=== PATIENT | female | born 1950 | race Caucasian/White ===

== ENCOUNTER 2017-05-03 09:45 | Outpatient (CLI) | payer MEDICARE, MEDICAID ==
[2017-05-03 18:35] LABS: ALBUMIN/GLOBULIN RATIO 1.3 (1.0-2.2); BILIRUBIN,TOTAL 0.8 mg/dL (0.2-1.0); BUN - BLOOD UREA NITROGEN 7 mg/dL (6-20); CALCIUM 9.4 mg/dL (8.5-10.3); CARBON DIOXIDE - CO2 25 mmol/L (21-32); CHLORIDE 103 mmol/L (101-111); CHOL/HDL RATIO 3.3 (<4.4); CHOLESTEROL 212 mg/dL; CREATININE 0.8 mg/dL (0.4-1.0); GFR - MDRD 72 (>89); GLUCOSE 86 mg/dL (70-100); HDL CHOLESTEROL 65 mg/dL; LDL/HDL RATIO 2.1 (<4.4); POTASSIUM 4.2 mmol/L (3.5-5.0); SODIUM 136 mmol/L (135-145); TOTAL PROTEIN 6.9 g/dL (6.7-8.2); TRIGLYCERIDES 49 mg/dL; VLDL CHOLESTEROL 10 mg/dL
== END 2017-05-03 09:46 | disposition home or self-care (01) ==
LOC: LAB.S 09:45
PROVIDERS: ATTEND Nurse Practitioner Family
DX: Z51.81 Encounter for therapeutic drug level monitoring (principal)
CPT/HCPCS: 36415; 80053; 80061; 80178; 84443

== ENCOUNTER 2017-05-06 12:37 | Outpatient (CLI) | payer MEDICARE, MEDICAID ==
--- NOTE | 2017-05-06 15:53 | CT Report ---
LOW DOSE CHEST CT WITHOUT CONTRAST FOR LUNG CANCER SCREENIN05/06/2017 CLINICAL INDICATION: A 66-year-old with 52.5-pack-year history of smoking, current smoker, asymptomat ic. COMPARISON: 04/08/2007. TECHNIQUE: Axial CT images of the chest were obtained without intravenous contrast, using low dose sc reening technique. FINDINGS: The heart and great vessels demonstrate mild atherosclerotic calcifications. No hilar or m ediastinal lymphadenopathy is present. There is a 4 mm subpleural nodule in the posterior left lower lobe, stable from 2006. No new pulmonary nodule or mass lesion is seen. No effusion or pneumothorax i s present. The osseous structures demonstrate degenerative changes. Limited evaluation of upper abdom inal structures demonstrates normal adrenal glands. IMPRESSION: STABLE 4 MM SUBPLEURAL NODULE IN THE LEFT LOWER LOBE. RECOMMENDATION: CONTINUE ANNUAL SCREENING WITH LOW DOSE CT IN TWELVE MONTHS. LUNG RADS CATEGORY 2-BENIGN APPEARANCE. In accordance with CT protocol optimization, one or more of the following dose reduction techniques w ere utilized for this exam: automated exposure control, adjustment of mA and/or KV based on patient size, or use of iterative reconstructive technique. JOB #: [id number] EXT JOB #:[id number]
== END 2017-05-06 12:38 | disposition home or self-care (01) ==
LOC: DI 12:37
PROVIDERS: ATTEND Nurse Practitioner Family
DX: Z12.2 Encounter for screening for malignant neoplasm of respiratory organs (principal); R91.1 Solitary pulmonary nodule; F17.210 Nicotine dependence, cigarettes, uncomplicated

== ENCOUNTER 2017-07-08 08:42 | Emergency (ER) | payer MEDICARE, MEDICAID ==
[2017-07-08 09:29] LABS: BILIRUBIN,URINE NEGATIVE (NEGATIVE); PH,URINE 6.5 PH (5.0-7.5)
[2017-07-08 09:30] LABS: UA CHARGE (STRIP ONLY) YES; UR CULTURE IF IND NOT INDICATED
[2017-07-08 09:31] LABS: BASOPHILS # (AUTO) 0.1 10^3/uL (0.0-0.1); BASOPHILS % (AUTO) 0.6 %; EOSINOPHILS # (AUTO) 0.1 10^3/uL (0.0-0.7); EOSINOPHILS % (AUTO) 0.7 %; HGB - HEMOGLOBIN 15.3 g/dL (12.0-16.0); LYMPHOCYTES # (AUTO) 1.7 10^3/uL (1.5-3.5); LYMPHOCYTES % (AUTO) 20.7 %; MEAN CORPUSCULAR HGB CONC 33.9 g/dL (32.0-36.0); MEAN CORPUSCULAR VOLUME 97.3 fL (81.0-99.0); MEAN PLATELET VOLUME 8.7 fL (7.9-10.8); MONOCYTES # (AUTO) 0.6 10^3/uL (0.0-1.0); MONOCYTES % (AUTO) 7.1 %; NEUTROPHILS # (AUTO) 5.8 10^3/uL (1.5-6.6); NEUTROPHILS % (AUTO) 70.9 %; RED BLOOD COUNT 4.63 10^6/uL (4.20-5.40); RED CELL DISTRIBUTION WIDTH 13.9 % (12.0-15.0); UNCORRECTED WHITE BLOOD COUNT 8.1 x10^3/uL; WHITE BLOOD COUNT 8.1 x10^3/uL (4.8-10.8)
[2017-07-08 09:44] LABS: ALBUMIN/GLOBULIN RATIO 1.3 (1.0-2.2); BILIRUBIN,TOTAL 0.9 mg/dL (0.2-1.0); BUN - BLOOD UREA NITROGEN 7 mg/dL (6-20); CALCIUM 9.4 mg/dL (8.5-10.3); CARBON DIOXIDE - CO2 22 mmol/L (21-32); CHLORIDE 102 mmol/L (101-111); CREATININE 0.6 mg/dL (0.4-1.0); GFR - MDRD 100 (>89); GLUCOSE 105 mg/dL (70-100); LIPASE 33 U/L (22-51); POTASSIUM 3.7 mmol/L (3.5-5.0); SALICYLATE < 6.0 mg/dL; SODIUM 136 mmol/L (135-145); TOTAL PROTEIN 6.9 g/dL (6.7-8.2)
[2017-07-08 09:46] LABS: ACETAMINOPHEN < 10 ug/mL (10-30)
--- NOTE | 2017-07-08 13:00 | ED Physician Documentation ---
History of Present Illness - Stated complaint Stated Complaint: CONFUSION - Chief complaint Chief Complaint: General - Additonal information Additional information: This patient is a pleasant 66-year-old female with a history of bipolar disorder on lithium. She was a patient of [facility] here and is been getting a prescription by her physician she is a patient of [facility] but apparently is unable to get counseling through them because of her Medicare status. This patient lives alone in a private home. She does have a homeless son who [place] who she worries about. She is unsure whether to let him stay at her house or not. She is also very worried about several political issues. She had a message that came across her phone very quickly and she is unsure if was addressed to her or not. Will at the [employer] somebody was talking in she was concerned that maybe they were talking to her in reference to these messages. She has not been sleeping well but this is an ongoing issue. She takes melatonin but sometimes it has no effect. She has been eating drinking without problem and does not have any somatic complaints. She is here because she has been feeling very stressed and she just wanted to . She does not have a plan to do so but did think about it which scared her. She does have a history of wrist cutting several years ago but has not done anything recently. Review of systems: For pertinent positive and negatives in the review of systems please see the history of present illness, otherwise all other systems have been reviewed and are negative. Dragon disclaimer: Parts of this medical record were created using voice recognition technology. Because of the inherent limitations of this system, occasional same sounding word substitutions do occur and persist despite proofreading. Please read the document for context. Review of Systems Constitutional: denies: Fever, Chills Eyes: denies: Loss of vision Psychiatric: reports: Suicidal, Delusions, Anxiety, Insomnia PD PAST MEDICAL HISTORY - Past Medical History Cardiovascular: High cholesterol Respiratory: None Endocrine/Autoimmune: None GI: None : None HEENT: None Psych: Depression, Anxiety, Bipolar disorder, Post traumatic stress disorder Musculoskeletal: Osteoporosis, Chronic back pain Derm: None - Past Surgical History Past Surgical History: Yes HEENT: Tonsil/Adenoidectomy - Present Medications Home Medications: Ambulatory Orders Medication Instructions Recorded Confirmed [facility] [place] [facility] [Lithobid] 300 mg PO DAILY 07/08/17 07/08/17 - Allergies Allergies/Adverse Reactions: Allergies Allergy/AdvReac Type Severity Reaction Status Date / Time adhesive Allergy Intermediate Rash Verified 12/13/14 22:00 naproxen Allergy Unknown Verified 07/27/14 11:14 - Social History Does the pt smoke?: Yes Smoking Status: Current every day smoker Does the pt drink ETOH?: No Does the pt have substance abuse?: Yes - Immunizations Immunizations are current?: No Immunizations: TDAP >10years/unknown - POLST Patient has POLST: No PD ED PE NORMAL - General General: Alert and oriented X 3, No acute distress, Well developed/nourished - HEENT HEENT: Atraumatic, PERRL - Neck Neck: Supple, no meningeal sign, No bony TTP - Cardiac Cardiac: RRR, No murmur, No gallop, No rub - Respiratory Respiratory: No respiratory distress, Clear bilaterally - Abdomen Abdomen: Normal bowel sounds, Soft, Non tender, Non distended - Derm Derm: Normal color, Warm and dry - Extremities Extremities: No deformity, No tenderness to palpate, Normal ROM s pain, No edema - Neuro Neuro: Alert and oriented X 3, 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, No motor deficit, No sensory deficit - Psych Psych: Normal mood, Normal affect Results - Vitals Vitals: Vital Signs - 24 hr 07/08/17 08:44 Temperature 36.2 C L Heart Rate 92 Respiratory 20 Rate Blood Pressure 154/97 H O2 Saturation 98 Oxygen O2 Source Room air - Labs Labs: Laboratory Tests 07/08/17 07/08/17 07/08/17 09:10 09:23 09:23 WBC 8.1 RBC 4.63 Hgb 15.3 Hct 45.0 MCV 97.3 MCH 33.0 H MCHC 33.9 RDW 13.9 Plt Count 307 MPV 8.7 Neut # 5.8 Lymph # 1.7 [place] # 0.6 Eos # 0.1 Baso # 0.1 Absolute Nucleated RBC 0.00 Nucleated RBCs 0.0 Sodium 136 Potassium 3.7 Chloride 102 Carbon Dioxide 22 Anion Gap 12.0 BUN 7 Creatinine 0.6 Estimated GFR (MDRD) 100 Glucose 105 H Calcium 9.4 Total Bilirubin 0.9 AST 22 ALT 21 Alkaline Phosphatase 87 Total Protein 6.9 Albumin 3.9 Globulin 3.0 Albumin/Globulin Ratio 1.3 Lipase 33 Urine Color LT. YELLOW Urine Clarity CLEAR Urine pH 6.5 Ur Specific [place] <=1.005 Urine Protein NEGATIVE Urine Glucose (UA) NEGATIVE Urine Ketones TRACE Urine Occult Blood NEGATIVE Urine Nitrite NEGATIVE Urine Bilirubin NEGATIVE Urine Urobilinogen 0.2 (NORMAL) Ur Leukocyte Esterase NEGATIVE Ur Microscopic Review NOT INDICATED Urine Culture Comments NOT INDICATED Last Dose Date Last Dose Time Salicylates < 6.0 Urine Opiates Screen NEGATIVE Ur Oxycodone Screen NEGATIVE Urine Methadone Screen NEGATIVE Ur Propoxyphene Screen NEGATIVE Acetaminophen < 10 L Ur Barbiturates Screen NEGATIVE Ur Tricyclics Screen NEGATIVE Ur Phencyclidine Scrn NEGATIVE Ur Amphetamine Screen NEGATIVE U Methamphetamines Scrn NEGATIVE U Benzodiazepines Scrn NEGATIVE [place] Urine Cocaine Screen NEGATIVE U Cannabinoids Screen NEGATIVE Ethyl Alcohol < 5.0 07/08/17 09:23 WBC RBC Hgb Hct MCV MCH MCHC RDW Plt Count MPV Neut # Lymph # [place] # Eos # Baso # Absolute Nucleated RBC Nucleated RBCs Sodium Potassium Chloride Carbon Dioxide Anion Gap BUN Creatinine Estimated GFR (MDRD) Glucose Calcium Total Bilirubin AST ALT Alkaline Phosphatase Total Protein Albumin Globulin Albumin/Globulin Ratio Lipase Urine Color Urine Clarity Urine pH Ur Specific [place] Urine Protein Urine Glucose (UA) Urine Ketones Urine Occult Blood Urine Nitrite Urine Bilirubin Urine Urobilinogen Ur Leukocyte Esterase Ur Microscopic Review Urine Culture Comments Last Dose Date Unknown Last Dose Time Unknown Salicylates Urine Opiates Screen Ur Oxycodone Screen Urine Methadone Screen Ur Propoxyphene Screen Acetaminophen Ur Barbiturates Screen Ur Tricyclics Screen Ur Phencyclidine Scrn Ur Amphetamine Screen U Methamphetamines Scrn U Benzodiazepines Scrn [place] 0.24 Urine Cocaine Screen U Cannabinoids Screen Ethyl Alcohol PD MEDICAL DECISION MAKING - ED course Complexity details: reviewed old records, reviewed results, re-evaluated patient , considered differential, d/w patient, d/w family, d/w small business consultant ED course: Patient is a pleasant elderly woman with history of bipolar disorder on lithium who presents feeling anxious and who also has felt suicidal. She does not have a plan or any history of previous attempts. She has not done anything recently but years ago she did cut her wrists however the injury was not serious. She currently lives at home alone and is been unable to get into see a counselor she says because she feels it is related to her Medicare. She is seen some messages on her phone and is unsure whether they were addressed to her not and in the [employer] there is someone talking and looking at her and she was concerned that they were talking in reference to her. She has a lot of concerns about her living status, political issues, and the well-being of her son who is homeless. She has been sleeping less but say is that she has been taking her medications regularly. She has no somatic complaints or findings on physical exam. Routine labs were done and are normal. Her toxicologic studies are normal. Her lithium level is slightly low which might be related to some of her symptoms here today. The patient does feel that she needs to be hospitalized for her current condition. She seen by social work and she is concerned as well at this point in time we were looking for voluntary placement of this female. Disposition: Voluntary transfer to psych facility Clinical impression: 1. Suicidal ideation 2. History of bipolar disorder with subtherapeutic lithium level 3. Moderate insomnia
[2017-07-08] MEDS ORDERED: LITHIUM 150 MG CAPSULE PO STA (17:40)
[2017-07-09] MEDS ORDERED: NICOTINE 14 MG PATCH TOP STA (08:22)
[2017-07-09] MEDS ORDERED: NICOTINE 14 MG PATCH TOP ONE (08:28)
[2017-07-09 08:41] VITALS: BP 128/77
== END 2017-07-09 09:00 ==
LOC: ED 08:42
DX: F31.9 Bipolar disorder, unspecified (principal); R45.851 Suicidal ideations; G47.00 Insomnia, unspecified; E78.00 Pure hypercholesterolemia, unspecified; F41.9 Anxiety disorder, unspecified; F17.200 Nicotine dependence, unspecified, uncomplicated
CPT/HCPCS: 36415; 80053; 80178; 80306; 80307; 81003; 83690; 85025; 93005; 99284; A9270; G0480; 80320; 80329; 81001; 87086; 99283

== ENCOUNTER 2017-08-09 10:04 | Outpatient (CLI) | payer MEDICARE, MEDICAID | END 2017-08-09 10:05 | disposition home or self-care (01) | LOC: LAB.S 10:04 | PROVIDERS: ATTEND Nurse Practitioner Family | DX: Z51.81 Encounter for therapeutic drug level monitoring (principal) | CPT/HCPCS: 36415; 80178 ==

== ENCOUNTER 2017-08-16 10:13 | Outpatient (CLI) | payer MEDICARE, MEDICAID ==
[2017-08-16 19:39] LABS: CHOLESTEROL 255 mg/dL; HDL CHOLESTEROL 63 mg/dL; LDL/HDL RATIO 2.6 (<4.4); TRIGLYCERIDES 129 mg/dL; VLDL CHOLESTEROL 26 mg/dL
== END 2017-08-16 10:14 | disposition home or self-care (01) ==
LOC: LAB.S 10:13
PROVIDERS: ATTEND Nurse Practitioner Family
DX: Z51.81 Encounter for therapeutic drug level monitoring (principal); E78.5 Hyperlipidemia, unspecified
CPT/HCPCS: 36415; 80061; 80178

== ENCOUNTER 2017-08-30 11:02 | Outpatient (CLI) | payer MEDICARE, MEDICAID ==
[2017-08-30 18:52] LABS: CALCIUM 9.4 mg/dL (8.5-10.3); CREATININE 0.7 mg/dL (0.4-1.0); POTASSIUM 3.9 mmol/L (3.5-5.0)
== END 2017-08-30 11:03 | disposition home or self-care (01) ==
LOC: LAB.S 11:02
PROVIDERS: ATTEND Nurse Practitioner Family
DX: F31.9 Bipolar disorder, unspecified (principal); Z51.81 Encounter for therapeutic drug level monitoring
CPT/HCPCS: 36415; 80048; 80178

== ENCOUNTER 2017-09-13 10:15 | Outpatient (CLI) | payer MEDICARE, MEDICAID | END 2017-09-13 10:16 | disposition home or self-care (01) | LOC: LAB.S 10:15 | PROVIDERS: ATTEND Psychiatry & Neurology Psychiatry | DX: F31.9 Bipolar disorder, unspecified (principal); Z51.81 Encounter for therapeutic drug level monitoring | CPT/HCPCS: 36415; 80178; 84443 ==

== ENCOUNTER 2017-09-27 10:05 | Outpatient (CLI) | payer MEDICARE, MEDICAID | END 2017-09-27 10:06 | disposition home or self-care (01) | LOC: LAB.S 10:05 | PROVIDERS: ATTEND Nurse Practitioner Family | DX: Z51.81 Encounter for therapeutic drug level monitoring (principal); R94.6 Abnormal results of thyroid function studies; F31.9 Bipolar disorder, unspecified | CPT/HCPCS: 36415; 80178; 84439 ==

== ENCOUNTER 2017-11-15 08:00 | Outpatient (CLI) | payer MEDICARE, MEDICAID | END 2017-11-15 08:01 | disposition home or self-care (01) | LOC: LAB.S 08:00 | PROVIDERS: ATTEND Nurse Practitioner Family | DX: R94.6 Abnormal results of thyroid function studies (principal) | CPT/HCPCS: 36415; 84443 ==

== ENCOUNTER 2018-01-24 08:00 | Outpatient (CLI) | payer MEDICARE, MEDICAID | END 2018-01-24 08:01 | disposition home or self-care (01) | LOC: LAB.S 08:00 | PROVIDERS: ATTEND Nurse Practitioner Family | DX: E03.9 Hypothyroidism, unspecified (principal) | CPT/HCPCS: 36415; 84443 ==

== ENCOUNTER 2018-05-23 13:05 | Outpatient (CLI) | END 2018-05-23 13:06 | disposition home or self-care (01) ==

== ENCOUNTER 2018-06-13 08:00 | Outpatient (CLI) | payer MEDICARE, MEDICAID ==
[2018-06-13 17:25] LABS: BASOPHILS % (AUTO) 0.8 %; EOSINOPHILS # (AUTO) 0.1 10^3/uL (0.0-0.7); HGB - HEMOGLOBIN 14.4 g/dL (12.0-16.0); LYMPHOCYTES # (AUTO) 1.7 10^3/uL (1.5-3.5); LYMPHOCYTES % (AUTO) 30.3 %; MEAN CORPUSCULAR HGB CONC 33.1 g/dL (32.0-36.0); MEAN CORPUSCULAR VOLUME 99.6 fL (81.0-99.0); MONOCYTES # (AUTO) 0.4 10^3/uL (0.0-1.0); MONOCYTES % (AUTO) 6.3 %; NEUTROPHILS # (AUTO) 3.4 10^3/uL (1.5-6.6); NEUTROPHILS % (AUTO) 60.6 %; PLT - PLATELET COUNT 267 10^3/uL (130-450); RED BLOOD COUNT 4.36 10^6/uL (4.20-5.40); WHITE BLOOD COUNT 5.6 x10^3/uL (4.8-10.8)
[2018-06-13 18:32] LABS: LITHIUM 0.27 mmol/L
[2018-06-13 18:51] LABS: ALBUMIN 2.7 g/dL (3.2-5.5); ALBUMIN/GLOBULIN RATIO 0.7 (1.0-2.2); ALKALINE PHOSPHATASE 97 IU/L (42-121); ALT ALANINE AMINOTRANSFERASE 18 IU/L (10-60); AST ASPARTATE AMINOTRANSFERASE 21 IU/L (10-42); BILIRUBIN,TOTAL 1.1 mg/dL (0.2-1.0); BUN - BLOOD UREA NITROGEN 10 mg/dL (6-20); CALCIUM 8.9 mg/dL (8.5-10.3); CARBON DIOXIDE - CO2 25 mmol/L (21-32); CHLORIDE 106 mmol/L (101-111); CHOL/HDL RATIO 5.2 (<4.4); CHOLESTEROL 260 mg/dL; CREATININE 0.7 mg/dL (0.4-1.0); GFR - MDRD 83 (>89); GLUCOSE 90 mg/dL (70-100); HDL CHOLESTEROL 50 mg/dL; LDL CHOLESTEROL,CALCULATED 178 mg/dL; LDL/HDL RATIO 3.6 (<4.4); SODIUM 136 mmol/L (135-145); TOTAL PROTEIN 6.5 g/dL (6.7-8.2); VLDL CHOLESTEROL 32 mg/dL
== END 2018-06-13 08:01 | disposition home or self-care (01) ==
LOC: LAB.S 08:00
PROVIDERS: ATTEND Nurse Practitioner Family
DX: E78.5 Hyperlipidemia, unspecified (principal); Z51.81 Encounter for therapeutic drug level monitoring
CPT/HCPCS: 36415; 80053; 80061; 80178; 83721; 84443; 85025

== ENCOUNTER 2018-08-15 10:28 | Outpatient (CLI) | payer MEDICARE, MEDICAID ==
[2018-08-15 18:03] LABS: CHOL/HDL RATIO 4.3 (<4.4); CHOLESTEROL 247 mg/dL; HDL CHOLESTEROL 57 mg/dL; LDL CHOLESTEROL,CALCULATED 164 mg/dL; LDL/HDL RATIO 2.9 (<4.4); VLDL CHOLESTEROL 26 mg/dL
== END 2018-08-15 10:29 | disposition home or self-care (01) ==
LOC: LAB.S 10:28
PROVIDERS: ATTEND Nurse Practitioner Family
DX: E78.5 Hyperlipidemia, unspecified (principal)
CPT/HCPCS: 36415; 80061; 83721

== ENCOUNTER 2018-11-07 10:32 | Outpatient (CLI) | payer MEDICARE, MEDICAID ==
[2018-11-07 18:31] LABS: LITHIUM 0.61 mmol/L
[2018-11-07 19:07] LABS: CHOL/HDL RATIO 4.1 (<4.4); CHOLESTEROL 314 mg/dL; HDL CHOLESTEROL 76 mg/dL; LDL CHOLESTEROL,CALCULATED 217 mg/dL; LDL/HDL RATIO 2.9 (<4.4); VLDL CHOLESTEROL 21 mg/dL
== END 2018-11-07 23:59 | disposition home or self-care (01) ==
LOC: LAB.S 10:32
PROVIDERS: ATTEND Nurse Practitioner Family
DX: E78.5 Hyperlipidemia, unspecified (principal); F31.9 Bipolar disorder, unspecified
CPT/HCPCS: 36415; 80061; 80178; 83721

== ENCOUNTER 2019-01-19 13:49 | Outpatient (CLI) | payer MEDICARE, MEDICAID ==
[2019-01-19 18:17] LABS: LITHIUM 0.56 mmol/L
[2019-01-19 18:24] LABS: CHOLESTEROL 291 mg/dL; HDL CHOLESTEROL 58 mg/dL; LDL CHOLESTEROL,CALCULATED 209 mg/dL; LDL/HDL RATIO 3.6 (<4.4); VLDL CHOLESTEROL 24 mg/dL
== END 2019-01-19 13:50 | disposition home or self-care (01) ==
LOC: LAB.F 13:49
PROVIDERS: ATTEND Nurse Practitioner Family
DX: E78.5 Hyperlipidemia, unspecified (principal); E03.9 Hypothyroidism, unspecified; F31.9 Bipolar disorder, unspecified
CPT/HCPCS: 36415; 80061; 80178; 83721; 84443

== ENCOUNTER 2019-03-06 08:00 | Outpatient (CLI) | payer MEDICARE, MEDICAID ==
[2019-03-06 18:44] LABS: ALBUMIN 3.2 g/dL (3.2-5.5); ALKALINE PHOSPHATASE 83 IU/L (42-121); ALT ALANINE AMINOTRANSFERASE 16 IU/L (10-60); AST ASPARTATE AMINOTRANSFERASE 21 IU/L (10-42); BILIRUBIN,DIRECT 0.1 mg/dL (0.1-0.5); BILIRUBIN,TOTAL 0.5 mg/dL (0.2-1.0); CHOL/HDL RATIO 2.2 (<4.4); CHOLESTEROL 117 mg/dL; HDL CHOLESTEROL 54 mg/dL; LDL CHOLESTEROL,CALCULATED 53 mg/dL; TOTAL PROTEIN 6.1 g/dL (6.7-8.2); VLDL CHOLESTEROL 10 mg/dL
== END 2019-03-06 23:59 | disposition home or self-care (01) ==
LOC: LAB.S 08:00
PROVIDERS: ATTEND Nurse Practitioner Family
DX: E78.5 Hyperlipidemia, unspecified (principal)
CPT/HCPCS: 36415; 80061; 80076; 83721

== ENCOUNTER 2019-10-25 10:47 | Outpatient (CLI) | payer MEDICARE, MEDICAID ==
[2019-10-25 17:25] LABS: LITHIUM 0.65 mmol/L
[2019-10-25 17:42] LABS: CHOL/HDL RATIO 3.5 (<4.4); CHOLESTEROL 253 mg/dL; HDL CHOLESTEROL 73 mg/dL; LDL CHOLESTEROL,CALCULATED 168 mg/dL; LDL/HDL RATIO 2.3 (<4.4); VLDL CHOLESTEROL 12 mg/dL
== END 2019-10-25 10:48 | disposition home or self-care (01) ==
LOC: LAB.S 10:47
PROVIDERS: ATTEND Physician Assistant Medical
DX: E78.5 Hyperlipidemia, unspecified (principal); F31.9 Bipolar disorder, unspecified
CPT/HCPCS: 36415; 80061; 80178; 83721

== ENCOUNTER 2020-07-11 12:57 | Outpatient (CLI) | payer MEDICARE, MEDICAID ==
--- NOTE | 2020-07-11 16:23 | CT Report ---
PROCEDURE: CHEST WO INDICATIONS: PULMONARY NODULE TECHNIQUE: Noncontrast 5 mm thick sections acquired from the pulmonary apices to the posterior costophrenic angl es. 7 mm thick coronal and sagittal MIP reformats were then acquired. For radiation dose reduction, the following was used: automated exposure control, adjustment of mA and/or kV according to patient size. COMPARISON: CT chest 05/23/2018, 05/06/2017 FINDINGS: Image quality: Excellent. Lungs and pleura: No acute air space opacities. No pleural effusions or pneumothorax. Central and peripheral airways are patent and normal in caliber. Groundglass nodules within the right upper lobe , the largest on series 4 image 70 measuring 7 mm are unchanged. In addition, a 4 mm subpleural left lower lobe nodule on series 4 image 164 is unchanged. 3 mm anterior left lower lobe nodule on series 4 image 236 is unchanged. Mediastinum: Heart size is normal. No pericardial effusion. No mediastinal adenopathy by size crit eria. Thoracic aorta and central pulmonary arteries are normal in size. Esophagus is normal in juan tita. No hiatal hernia. Bones and chest wall: No suspicious bony lesions. No vertebral body compression fractures. No axil vickie or supraclavicular adenopathy by size criteria. The thyroid is normal in size. Abdomen: Persistent appearance slightly more prominent of left UPJ obstruction. Otherwise, visualize d upper abdominal solid organs and bowel loops appear normal in the absence of contrast. IMPRESSION: 1. Unchanged subcentimeter pulmonary nodules since 2018. Given current recommendations and stability since 2018, findings are suggestive of benign etiology and no further follow-up is recommended. Reviewed by: Alondra Dennison MD on 07/11/2020 4:22 PM PDT Approved by: Alondra Dennison MD on 07/11/2020 4:22 PM PDT Station ID: [id number]
== END 2020-07-11 12:58 | disposition home or self-care (01) ==
LOC: DI 12:57
PROVIDERS: ATTEND Registered Nurse
DX: R91.8 Other nonspecific abnormal finding of lung field (principal)
CPT/HCPCS: 71250

== ENCOUNTER 2021-01-06 12:18 | Outpatient (CLI) | payer MEDICARE, MEDICAID ==
[2021-01-06 15:42] LABS: LITHIUM 0.77 mmol/L
== END 2021-01-06 12:19 | disposition home or self-care (01) ==
LOC: LAB.S 12:18
PROVIDERS: ATTEND Registered Nurse
DX: F31.9 Bipolar disorder, unspecified (principal)
CPT/HCPCS: 36415; 80178

== ENCOUNTER 2021-02-05 10:29 | Outpatient (CLI) | payer MEDICARE, MEDICAID ==
--- NOTE | 2021-02-06 13:27 | Mammography Report ---
BILATERAL DIGITAL DIAGNOSTIC MAMMOGRAM 3D/2D: 02/05/2021 CLINICAL: Diffuse left breast pain. Routine screening. Comparison is made to exam dated: 07/24/2013 mammogram - [facility]. The tissue of both breasts is predominantly fatty. No significant masses, calcifications, or other findings are seen in either breast. There has been no significant interval change. IMPRESSION: NEGATIVE There is no mammographic evidence of malignancy. A 1 year screening mammogram is recommended. This exam was interpreted at Station ID: [id number]. NOTE: For mammograms, a report in lay terms will be sent to the patient. Approximately 15% of breast malignancies will not be visualized mammographically. In the management of a palpable breast mass, a negative mammogram must not discourage biopsy of a clinically suspicious lesion. Electronically Signed By: Dewayne Walker M.D., jr/derek:02/05/2021 11:24:41 ACR BI-RADS Category 1: Negative 3341F PARENCHYMAL PATTERN: (F) - The breast(s) demonstrate(s) diffuse fatty replacement. BI-RADS CATEGORY: (1) - 1 RECOMMENDATION: (ANNUAL) - Recommend routine annual screening mammography. [id number] 1 year screening LATERALITY: (B)
== END 2021-02-05 10:30 | disposition home or self-care (01) ==
LOC: DI 10:29
PROVIDERS: ATTEND Registered Nurse
DX: N64.4 Mastodynia (principal)

== ENCOUNTER 2021-06-10 11:08 | Outpatient (CLI) | payer MEDICARE, MEDICAID ==
[2021-06-10 14:46] LABS: BASOPHILS % (AUTO) 0.6 %; EOSINOPHILS # (AUTO) 0.3 10^3/uL (0.0-0.7); EOSINOPHILS % (AUTO) 5.3 %; HCT - HEMATOCRIT 42.2 % (37.0-47.0); HGB - HEMOGLOBIN 13.6 g/dL (12.0-16.0); LYMPHOCYTES # (AUTO) 2.4 10^3/uL (1.5-3.5); LYMPHOCYTES % (AUTO) 36.7 %; MEAN CORPUSCULAR HEMOGLOBIN 33.4 pg (27.0-31.0); MEAN CORPUSCULAR HGB CONC 32.2 g/dL (32.0-36.0); MEAN CORPUSCULAR VOLUME 103.7 fL (81.0-99.0); MEAN PLATELET VOLUME 12.2 fL (7.9-10.8); MONOCYTES # (AUTO) 0.5 10^3/uL (0.0-1.0); MONOCYTES % (AUTO) 7.3 %; NEUTROPHILS # (AUTO) 3.2 10^3/uL (1.5-6.6); NEUTROPHILS % (AUTO) 49.8 %; PLT - PLATELET COUNT 235 10^3/uL (130-450); RED BLOOD COUNT 4.07 10^6/uL (4.20-5.40); RED CELL DISTRIBUTION WIDTH 13.9 % (12.0-15.0); WHITE BLOOD COUNT 6.4 x10^3/uL (4.8-10.8)
[2021-06-10 15:10] LABS: ALBUMIN 3.6 g/dL (3.2-5.5); ALBUMIN/GLOBULIN RATIO 1.2 (1.0-2.2); ALKALINE PHOSPHATASE 83 IU/L (42-121); ALT ALANINE AMINOTRANSFERASE 16 IU/L (10-60); AST ASPARTATE AMINOTRANSFERASE 19 IU/L (10-42); BUN - BLOOD UREA NITROGEN 15 mg/dL (6-20); CARBON DIOXIDE - CO2 21 mmol/L (21-32); CHLORIDE 103 mmol/L (101-111); CHOL/HDL RATIO 4.3 (<4.4); CHOLESTEROL 290 mg/dL; CREATININE 0.7 mg/dL (0.4-1.0); GFR - MDRD 83 (>89); GLUCOSE 90 mg/dL (70-100); HDL CHOLESTEROL 68 mg/dL; LDL CHOLESTEROL,CALCULATED 194 mg/dL; LDL/HDL RATIO 2.9 (<4.4); POTASSIUM 3.7 mmol/L (3.5-5.0); SODIUM 139 mmol/L (135-145); THYROID STIMULATING HORMONE 8.88 uIU/mL (0.34-5.60); TOTAL PROTEIN 6.5 g/dL (6.7-8.2); TRIGLYCERIDES 139 mg/dL; VLDL CHOLESTEROL 28 mg/dL
[2021-06-10 15:14] LABS: LITHIUM 0.73 mmol/L
[2021-06-10 16:01] LABS: FREE T4 (FREE THYROXINE) 0.98 ng/dL (0.58-1.64)
== END 2021-06-10 11:09 | disposition home or self-care (01) ==
LOC: LAB.S 11:08
PROVIDERS: ATTEND Registered Nurse
DX: E03.9 Hypothyroidism, unspecified (principal); F17.210 Nicotine dependence, cigarettes, uncomplicated; E78.5 Hyperlipidemia, unspecified; Z79.899 Other long term (current) drug therapy
CPT/HCPCS: 36415; 80053; 80061; 80178; 83721; 84439; 84443; 85025

== ENCOUNTER 2022-02-02 12:02 | Outpatient (CLI) | payer MEDICARE, MEDICAID ==
[2022-02-02 15:24] LABS: LITHIUM 0.67 mmol/L
== END 2022-02-02 12:03 | disposition home or self-care (01) ==
LOC: LAB.S 12:02
PROVIDERS: ATTEND Registered Nurse
DX: Z79.899 Other long term (current) drug therapy (principal)
CPT/HCPCS: 36415; 80178; 84443

== ENCOUNTER 2022-07-01 11:51 | Outpatient (CLI) | payer MEDICARE, MEDICAID ==
[2022-07-01 14:40] LABS: BASOPHILS # (AUTO) 0.1 10^3/uL (0.0-0.1); BASOPHILS % (AUTO) 0.9 %; EOSINOPHILS # (AUTO) 0.2 10^3/uL (0.0-0.7); EOSINOPHILS % (AUTO) 3.5 %; HCT - HEMATOCRIT 44.4 % (37.0-47.0); HGB - HEMOGLOBIN 14.6 g/dL (12.0-16.0); LYMPHOCYTES # (AUTO) 2.6 10^3/uL (1.5-3.5); LYMPHOCYTES % (AUTO) 40.4 %; MEAN CORPUSCULAR HEMOGLOBIN 32.9 pg (27.0-31.0); MEAN CORPUSCULAR HGB CONC 32.9 g/dL (32.0-36.0); MEAN PLATELET VOLUME 11.2 fL (7.9-10.8); MONOCYTES # (AUTO) 0.5 10^3/uL (0.0-1.0); MONOCYTES % (AUTO) 7.3 %; NEUTROPHILS % (AUTO) 47.6 %; PLT - PLATELET COUNT 328 10^3/uL (130-450); RED BLOOD COUNT 4.44 10^6/uL (4.20-5.40); WHITE BLOOD COUNT 6.3 x10^3/uL (4.8-10.8)
[2022-07-01 15:14] LABS: LITHIUM 0.68 mmol/L
[2022-07-01 15:22] LABS: ALBUMIN 3.7 g/dL (3.2-5.5); ALBUMIN/GLOBULIN RATIO 1.1 (1.0-2.2); ALKALINE PHOSPHATASE 98 IU/L (42-121); ALT ALANINE AMINOTRANSFERASE 12 IU/L (10-60); AST ASPARTATE AMINOTRANSFERASE 20 IU/L (10-42); BILIRUBIN,TOTAL 0.8 mg/dL (0.2-1.0); BUN - BLOOD UREA NITROGEN 20 mg/dL (6-20); CARBON DIOXIDE - CO2 26 mmol/L (21-32); CHLORIDE 105 mmol/L (101-111); CHOL/HDL RATIO 4.4 (<4.4); CHOLESTEROL 273 mg/dL; CREATININE 0.8 mg/dL (0.4-1.0); GFR - MDRD 71 (>89); GLUCOSE 98 mg/dL (70-100); HDL CHOLESTEROL 62 mg/dL; LDL CHOLESTEROL,CALCULATED 185 mg/dL; SODIUM 138 mmol/L (135-145); TRIGLYCERIDES 131 mg/dL; VLDL CHOLESTEROL 26 mg/dL
[2022-07-01 15:57] LABS: THYROID STIMULATING HORMONE 10.01 uIU/mL (0.34-5.60)
[2022-07-01 16:42] LABS: FREE T4 (FREE THYROXINE) 0.69 ng/dL (0.58-1.64)
== END 2022-07-01 11:52 | disposition home or self-care (01) ==
LOC: LAB.S 11:51
PROVIDERS: ATTEND Registered Nurse
DX: E78.5 Hyperlipidemia, unspecified (principal); Z51.81 Encounter for therapeutic drug level monitoring; Z79.899 Other long term (current) drug therapy; E03.9 Hypothyroidism, unspecified
CPT/HCPCS: 36415; 80053; 80061; 80178; 83721; 84439; 84443; 85025

== ENCOUNTER 2022-08-19 09:07 | Outpatient (CLI) | payer MEDICARE, MEDICAID ==
[2022-08-19 15:16] LABS: T4 (THYROXINE) 10.96 ug/dL (6.09-12.23)
[2022-08-19 15:19] LABS: THYROID STIMULATING HORMONE 0.09 uIU/mL (0.34-5.60)
== END 2022-08-19 09:08 | disposition home or self-care (01) ==
LOC: LAB.S 09:07
PROVIDERS: ATTEND Registered Nurse
DX: R94.6 Abnormal results of thyroid function studies (principal)
CPT/HCPCS: 36415; 84436; 84443; 84480

== ENCOUNTER 2022-09-08 11:30 | Day surgery (SDC) | payer MEDICARE, MEDICAID ==
[2022-09-08] MEDS ORDERED: LACTATED RINGERS 1,000 ML IV ONE (11:32)
--- NOTE | 2022-09-08 12:42 | ANESTHESIA ---
Pre-Anesthesia VS, & Labs - Diagnosis pos cologuard - Procedure colonoscopy Vital Signs: Temp Pulse Resp BP Pulse Ox O2 Flow Rate 36.8 C 93 16 144/90 H 98 09/08/22 11:43 09/08/22 11:43 09/08/22 11:43 09/08/22 11:43 09/08/22 11:43 Height: 5 ft 3 in Weight (kg): 57 kg Body Mass Index: 22.2 BMI Classification: Normal - NPO >8 hours - Is Patient ?: No Home Medications and Allergies [place] [facility] [Lithobid] 600 mg PO DAILY 07/08/17 Allergies/Adverse Reactions: Allergies Allergy/AdvReac Type Severity Reaction Status Date / Time adhesive Allergy Intermediate Rash Verified 12/13/14 22:00 naproxen Allergy Unknown Verified 07/27/14 11:14 Anes History & Medical History - Anesthetic History Anesthesia Complications: reports: No previous complications Family history of Anesthesia Complications: Denies Family history of Malignant Hyperthermia: Denies - Medical History Cardiovascular: reports: None, High cholesterol Pulmonary: reports: None Gastrointestinal: reports: None Urinary: reports: None Musculoskeletal: reports: Osteoporosis, Chronic back pain Endocrine/Autoimmune: reports: None Blood Disorders: reports: None Skin: reports: None Smoking Status: Current every day smoker - Surgical History Eyes Ears Nose Throat (EENT): reports: Tonsil/Adenoidectomy Exam General: Alert, Oriented x3, Cooperative Dental: WNL Mouth Openin Fingerbreadth Neck Mobility: Normal Mallampati classification: II Thyromental Distance: 4-6 cm Respiratory: Lungs clear Cardiovascular: Regular rate Plan Anesthesia Type: Total IV Consent for Procedure(s) Verified and Reviewed: Yes Code Status: Attempt Resuscitation ASA classification: 3-Severe systemic disease Is this case an emergency?: No
[2022-09-08] MEDS ORDERED: PROPOFOL 500 MG/50 ML 500 MG/50 ML VIAL ONE (12:56)
[2022-09-08] MEDS ORDERED: MIDAZOLAM 2 MG/2 ML VIAL ONE (12:59)
[2022-09-08] MEDS ORDERED: ePHEDrine 50 MG/ML VIAL IVP ONE (13:57)
[2022-09-08] MEDS ORDERED: LACTATED RINGERS 700 ML IV ONE (14:26)
[2022-09-08] MEDS ORDERED: PROPOFOL 200 MG/20 ML VIAL IVP ONE (14:37)
[2022-09-08 14:46] VITALS: BP 115/75
== END 2022-09-08 11:31 | disposition home or self-care (01) ==
LOC: SDS 11:30
PROVIDERS: ATTEND Surgery
PROC: 0DBL8ZX Excision of Transverse Colon, Via Natural or Artificial Opening Endoscopic, Diagnostic (ICD-10-PCS; 2022-09-08)
PROC: 0DBN8ZX Excision of Sigmoid Colon, Via Natural or Artificial Opening Endoscopic, Diagnostic (ICD-10-PCS; 2022-09-08)
PROC: 0DBP8ZX Excision of Rectum, Via Natural or Artificial Opening Endoscopic, Diagnostic (ICD-10-PCS; 2022-09-08)
PROC: 0DBM8ZX Excision of Descending Colon, Via Natural or Artificial Opening Endoscopic, Diagnostic (ICD-10-PCS; 2022-09-08)
PROC: 0DBH8ZX Excision of Cecum, Via Natural or Artificial Opening Endoscopic, Diagnostic (ICD-10-PCS; principal; 2022-09-08 13:00)
DX: R19.5 Other fecal abnormalities (principal); D12.0 Benign neoplasm of cecum; D12.3 Benign neoplasm of transverse colon; D12.8 Benign neoplasm of rectum; K62.1 Rectal polyp; K63.5 Polyp of colon
CPT/HCPCS: 45380; 45385; J7120

== ENCOUNTER 2023-01-05 12:39 | Outpatient (CLI) | payer MEDICARE, MEDICAID ==
[2023-01-05 15:26] LABS: FREE T3 2.56 pg/mL (2.5-3.9); THYROID STIMULATING HORMONE 5.09 uIU/mL (0.34-5.60)
--- NOTE | 2023-01-05 15:56 | XRAY Report ---
PROCEDURE: Cervical Spine 2 View INDICATIONS: SHOULDER PAIN, RIGHT TECHNIQUE: 3 view(s) of the cervical spine were acquired. COMPARISON: None. FINDINGS: Bones: No fractures or dislocations to the T2 level. The lateral masses of C1 appear intact on the odontoid view. No suspicious bony lesions. Moderate C5-C6, C6-C7, C7-T1 degenerative disease. Mild C 2-C3, C3 on C4 and C4-C5 degenerative disease. Mild facet appear tree throughout the cervical spine. Mild bilateral C3-4 and C5, C5-C6 and C6-7 C7 uncovertebral hypertrophy. Soft tissues: No prevertebral soft tissue swelling. IMPRESSION: 1. Multilevel degenerative disc disease. 2. Multilevel facet and uncovertebral arthropathy. 3. No fracture. No acute osseous lesion. If there is continued clinical concern for pathology, then M RI should be considered for further evaluation. Reviewed by: Mattie Smith MD, PhD on 01/05/2023 3:55 PM PST Approved by: Mattie Smith MD, PhD on 01/05/2023 3:55 PM PST Station ID: [id number]
== END 2023-01-05 12:40 | disposition home or self-care (01) ==
LOC: DI.S 12:39
PROVIDERS: ATTEND Registered Nurse
DX: M50.33 Other cervical disc degeneration, cervicothoracic region (principal); M47.812 Spondylosis without myelopathy or radiculopathy, cervical region; E03.9 Hypothyroidism, unspecified
CPT/HCPCS: 36415; 84443; 84481

== ENCOUNTER 2023-08-10 12:27 | Outpatient (CLI) | payer MEDICARE, MEDICAID ==
--- NOTE | 2023-08-11 10:45 | CT Report ---
PROCEDURE: CHEST WO INDICATIONS: PULMONARY NODULE TECHNIQUE: Noncontrast 1mm axial images were acquired from the pulmonary apices to the posterior costophrenic an gles. Axial 5 mm soft tissue kernel reconstructions were performed as well as 8 mm axial MIP and cor onal and sagittal 5 mm reformations. For radiation dose reduction, the following was used: automate d exposure control, adjustment of mA and/or kV according to patient size. COMPARISON: CT chest, 07/11/2020, 05/23/2018, 05/06/2017. CT of abdomen and pelvis, 06/28/2015. FINDINGS: Image quality: Excellent. Lungs and pleura: Lung nodules are present. Reference nodules are listed in following: Nodule 1: 8 mm; groundglass; right upper lobe; series 3 image 54; stable. Nodule 2: 3 mm; subsolid; right upper lobe; series 3 image 85; new. Nodule 3: 5 mm; solid; left lower lobe; series 3 image 148. Bilateral upper lobe subtle groundglass nodules or nodular infiltrates. There are small calcified nod ules in the right middle lobe and right lower lobe, compatible with old granulomas. No consolidation. No pleural effusions. No pneumothorax. Mediastinum: Heart size is normal. No pericardial effusion. Mild coronary calcification. Severe aorti c calcification. No large vessel abnormality. No mediastinal adenopathy by size criteria. Chest wall and lower neck: Thyroid is unremarkable. No axillary or supraclavicular adenopathy by size . Bones: No aggressive osseous abnormality. Upper Abdomen: Mild chronic left hydronephrosis, unchanged from the last exam. IMPRESSION: 1. Multiple pulmonary nodules bilaterally, most likely infectious or inflammatory etiology. A 3 mm urbina bpleural nodule in the right upper lobe is new. Please see enclosed follow-up recommendation. 2. 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 Fleischner Society criteria for SUB-SOLID lung nodule followup. Solitary pure ground-glass nodules 5 mm or lessNo followup needed. >5 mm3 mo follow-up CT to confirm persistence. Then annual CT for 3 years. Part-solid nodules3 mo follow-up CT to confirm persistence. If persistent with solid component <5 mm , annual CT for at least 3 years. If solid component is 5 mm or more, biopsy or surgical resection. Consider PET-CT for lesions > 10 mm. Multiple sub-solid nodules Pure ground glass nodules [address] at 2 and 4 years. Pure ground glass nodules >5 mm without dominant lesion. [address] to confirm persistence, then annual followup CT for at least 3 years. Dominant nodule(s) with part-solid or solid component. [address] to confirm persistence. If persistent, consider biopsy or surgical resection, nelson if lesions have >5 mm solid component. Reviewed by: Golden Cox MD on 08/11/2023 10:43 AM PDT Approved by: Golden Cox MD on 08/11/2023 10:43 AM PDT Station ID: [id number]
== END 2023-08-10 12:28 | disposition home or self-care (01) ==
LOC: DI 12:27
PROVIDERS: ATTEND Registered Nurse
DX: R91.8 Other nonspecific abnormal finding of lung field (principal); N13.0 Hydronephrosis with ureteropelvic junction obstruction

== ENCOUNTER 2023-09-27 12:57 | Outpatient (CLI) | payer MEDICARE, MEDICAID ==
[2023-09-27 20:32] LABS: BASOPHILS # (AUTO) 0.1 10^3/uL (0.0-0.1); EOSINOPHILS # (AUTO) 0.2 10^3/uL (0.0-0.7); EOSINOPHILS % (AUTO) 2.9 %; HCT - HEMATOCRIT 39.8 % (37.0-47.0); HGB - HEMOGLOBIN 12.9 g/dL (12.0-16.0); LYMPHOCYTES # (AUTO) 2.4 10^3/uL (1.5-3.5); MEAN CORPUSCULAR HEMOGLOBIN 32.6 pg (27.0-31.0); MEAN CORPUSCULAR HGB CONC 32.4 g/dL (32.0-36.0); MEAN CORPUSCULAR VOLUME 100.5 fL (81.0-99.0); MEAN PLATELET VOLUME 11.8 fL (7.9-10.8); MONOCYTES # (AUTO) 0.4 10^3/uL (0.0-1.0); MONOCYTES % (AUTO) 5.8 %; NEUTROPHILS # (AUTO) 3.9 10^3/uL (1.5-6.6); NEUTROPHILS % (AUTO) 56.2 %; PLT - PLATELET COUNT 236 10^3/uL (130-450); RED BLOOD COUNT 3.96 10^6/uL (4.20-5.40); RED CELL DISTRIBUTION WIDTH 13.2 % (12.0-15.0); WHITE BLOOD COUNT 6.9 x10^3/uL (4.8-10.8)
[2023-09-27 21:03] LABS: ALBUMIN 3.9 g/dL (3.2-5.5); ALBUMIN/GLOBULIN RATIO 1.5 (1.0-2.2); ALKALINE PHOSPHATASE 80 IU/L (42-121); ALT ALANINE AMINOTRANSFERASE 9 IU/L (10-60); AST ASPARTATE AMINOTRANSFERASE 14 IU/L (10-42); BILIRUBIN,TOTAL 0.6 mg/dL (0.2-1.0); BUN - BLOOD UREA NITROGEN 6 mg/dL (6-20); CALCIUM 9.5 mg/dL (8.5-10.3); CARBON DIOXIDE - CO2 27 mmol/L (21-32); CHLORIDE 107 mmol/L (101-111); CHOLESTEROL 264 mg/dL; CREATININE 0.6 mg/dL (0.6-1.3); GFR - MDRD 98 (>89); GLUCOSE 93 mg/dL (74-104); HDL CHOLESTEROL 66 mg/dL; LDL CHOLESTEROL,CALCULATED 168 mg/dL; LDL/HDL RATIO 2.5 (<4.4); POTASSIUM 3.9 mmol/L (3.5-4.5); SODIUM 140 mmol/L (135-145); TOTAL PROTEIN 6.5 g/dL (6.4-8.9); TRIGLYCERIDES 151 mg/dL (48-352); VLDL CHOLESTEROL 30 mg/dL
[2023-09-27 21:05] LABS: LITHIUM 0.63 mmol/L
== END 2023-09-27 12:58 | disposition home or self-care (01) ==
LOC: LAB.S 12:57
PROVIDERS: ATTEND Registered Nurse
DX: E78.5 Hyperlipidemia, unspecified (principal); Z79.899 Other long term (current) drug therapy; Z13.29 Encounter for screening for other suspected endocrine disorder
CPT/HCPCS: 36415; 80053; 80061; 80178; 83721; 84443; 85025

== ENCOUNTER 2023-12-06 12:59 | Outpatient (CLI) | payer MEDICARE, MEDICAID ==
--- NOTE | 2023-12-07 01:09 | CT Report ---
PROCEDURE: Chest WO INDICATIONS: GROUND GLASS OPACITY TECHNIQUE: A CT scan of the chest was performed. Intravenous contrast media was not administered. Images were re corded and evaluated at appropriate window settings. Reformats: axial MIP of the chest, coronal and s agittal. For radiation dose reduction, the following was used: automated exposure control, adjustment of mA and/or kV according to patient size. COMPARISON: CT chest 08/10/2023, 07/11/2020. FINDINGS: Image quality: Diagnostic. Lungs and pleura: No consolidation. No pleural effusions. No pneumothorax. There are again seen mult iple pulmonary nodules, for example as follows: -Right upper lobe groundglass nodule measuring 7 mm, previously 8 mm on 08/10/2023, stable going back to CT 07/11/2020 (3/65, MIP image 33) -Left lower lobe juxtapleural 5 mm nodule, previously 5 mm (3/159, MIP image 80) No new or enlarging pulmonary nodules. Mediastinum: Heart size is normal. No pericardial effusion. No large vessel abnormality. No mediastin al adenopathy by size criteria. Severe aortic arch calcifications, as before. Mild coronary artery c alcifications. Chest wall and lower neck: Thyroid is unremarkable. No axillary or supraclavicular adenopathy by size . Bones: Degenerative change of the spine without acute or suspicious osseous abnormality. Upper Abdomen: Unremarkable. IMPRESSION: Stable groundglass nodule in the right upper lobe since 07/11/2020 suggestive of a benign etiology giv en stability for over 3 years. Stable pulmonary micronodules. No new or enlarging pulmonary nodule. Reviewed by: Mally Orellana MD on 12/07/2023 1:07 AM PST Approved by: Mally Orellana MD on 12/07/2023 1:07 AM PST Station ID: [id number]
== END 2023-12-06 13:00 | disposition home or self-care (01) ==
LOC: DI 12:59
PROVIDERS: ATTEND Registered Nurse
DX: R91.8 Other nonspecific abnormal finding of lung field (principal)

== ENCOUNTER 2024-11-08 00:59 | Observation (INO) ==
--- NOTE | 2024-11-08 01:08 | ED Physician Documentation ---
History of Present Illness Stated complaint Stated Complaint: LOWER BACK PX Chief complaint Chief Complaint: Back Pain History obtained from History obtained from: Patient Additonal information Additional information: The patient comes to the emergency department via EMS for chief complaint of sudden onset of left-sided back pain radiating into her left low abdomen about 4 hours ago. The patient states she was at rest when it started, and just laying on the couch. She thinks she may have had a kidney stone once in the past but I would not, no history of any back issues or pain. No trauma. She had some n ausea and vomiting when the pain first started. No fevers, chills, or dysuria. No other complaints at this time. Meds/Allgy Home Medications Ambulatory Orders Medication Instructions Recorded Confirmed aspirin 325 mg tablet,delayed 650 mg PO QDAY 10/05/24 10/05/24 release glucosamine 750 mg-chondr 600 ea PO 10/05/24 10/05/24 mg-Ryann 50 mg-turmeric 125 mg tablets lithium carbonate 300 mg mg PO 10/05/24 10/05/24 tablet,extended release meloxicam 7.5 mg tablet 7.5 mg PO QDAY #90 tabs 10/05/24 10/05/24 multivitamin (Multiple Vitamins 1 tab PO QDAY 10/05/24 10/05/24 tablet) levothyroxine 75 mcg tablet 75 mcg PO QDAY #100 tabs 10/06/24 (Synthroid) Allergies Allergies Allergy/AdvReac Type Severity Reaction Status Date / Time lamotrigine (From Lamictal) Allergy Severe Unknown Verified 11/08/24 01:05 Urydkuk-FKM-TwR Reductase Allergy Severe Unknown Verified 11/08/24 01:05 Inhibitor tramadol Allergy Severe Unknown Verified 11/08/24 01:05 adhesive Allergy Intermediate Rash Verified 11/08/24 01:05 naproxen Allergy Unknown Verified 11/08/24 01:05 meloxicam AdvReac Intermediate Itching Verified 11/08/24 01:05 [facility] Social History Social History (Updated 10/05/24 @ 13:11 by Jazmin Cantu LPN) Smoking Status: Current every day smoker Number of Years Smoked: 50 How many cigarettes a day do you smoke? (20 cigarettes=1 Pk): 5 Do you dip or chew tobacco?: No Do you vape?: No Patient requests smoking cessation consult: Yes Initiate information on smoking cessation: Yes Living arrangement: At home Relationship: Do you feel safe in your home environment?: Yes Suffered physical, verbal, emotional, or financial abuse?: No History of Abuse: No ETOH Use: None Substance Use: cannabis (any form) POLST Patient has POLST: No Exam Constitutional normal general appearance and no apparent distress Patient ambulates to the bathroom without difficulty. HENMT normocephalic, head/scalp atraumatic, external nose normal and oral mucous membranes normal Eyes EOMs intact bilaterally Neck/C-Spine visual inspection normal and supple Respiratory breath sounds equal bilaterally, normal respiratory effort and clear to auscultation bilaterally Cardiovascular normal heart rate noted, regular rhythm noted and no edema Gastrointestinal abdomen normal to inspection, abdomen soft to palpation, nontender to palpation and nondistended Genitourinary no CVA tenderness Extremities normal to inspection Neurology Alert, grossly intact Psychiatry mental status grossly normal Skin skin color normal Results Vitals Vitals: Vital Signs - 24 hr 11/08/24 01:03 11/08/24 01:22 11/08/24 01:46 Temperature 36.8 C Temperature Source Tympanic Pulse Rate 76 Respiratory Rate 18 Blood Pressure 181/88 H O2 Saturation 100 O2 Source Room air Pain Intensity 10 10 10 11/08/24 02:05 11/08/24 02:09 11/08/24 02:20 Temperature Temperature Source Pulse Rate 78 Respiratory Rate 14 Blood Pressure 156/86 H O2 Saturation 97 O2 Source Room air Pain Intensity 10 8 11/08/24 02:43 11/08/24 05:02 Temperature Temperature Source Pulse Rate 77 Respiratory Rate 16 Blood Pressure 139/76 H O2 Saturation 98 O2 Source Room air Pain Intensity 6 Oxygen O2 Source Room air Labs Labs: Laboratory Tests 11/08/24 11/08/24 01:08 01:56 WBC 12.2 H RBC 3.79 L Hgb 12.4 Hct 38.8 MCV 102.4 H MCH 32.7 H MCHC 32.0 RDW 13.3 Plt Count 288 MPV 11.0 H Neut # (Auto) 11.0 H Lymph # (Auto) 0.7 L Davie # (Auto) 0.4 Eos # (Auto) 0.0 Baso # (Auto) 0.0 Absolute Nucleated RBC 0.00 Nucleated RBC % 0.0 Sodium 138 Potassium 4.0 Chloride 107 Carbon Dioxide 23 Anion Gap 8.0 BUN 23 H Creatinine 0.9 Estimated GFR (MDRD) 61 L Glucose 150 H Calcium 8.9 Total Bilirubin 0.4 AST 20 ALT 15 Alkaline Phosphatase 71 Total Protein 6.6 Albumin 3.7 Globulin 2.9 Albumin/Globulin Ratio 1.3 Lipase 14 Urine Color YELLOW Urine Clarity CLEAR Urine pH 6.5 Ur Specific Leland 1.020 Urine Protein NEGATIVE Urine Glucose (UA) NEGATIVE Urine Ketones 15 H Urine Occult Blood TRACE-INTA Urine Nitrite NEGATIVE Urine Bilirubin NEGATIVE Urine Urobilinogen 0.2 (NORMAL) Ur Leukocyte Esterase NEGATIVE Ur Microscopic Review NOT INDICATED Urine Culture Comments NOT INDICATED PD Medical Decision Making ED course Complexity details: reviewed old records, reviewed results, re-evaluated patient, considered differential and d/w patient ED course: The patient was treated symptomatically with IV fluids and Toradol, and worked up a UA and CT scan of the abdomen and pelvis without contrast. The urinalysis was unremarkable. The noncontrast CT showed severe hydronephrosis with significant perinephric fluid. Radiology felt that there was likely a UPJ obstruction, though no stones or masses were visualized. The patient had been found to have a small, 3 cm abdominal aortic aneurysm as well. The patient was still in quite a bit of pain after receiving the Toradol so she was given a dose of Dilaudid. I did order laboratory studies including CBC and ER abdominal panel and the patient was found to have a mild leukocytosis at 12.2 but oth erwise unremarkable labs with notably normal kidney function. I was concerned about the amount of fluid around the kidney and the lack of a good explanation for it in the setting of acute severe pain. As such, I decided to obtain a CT angiogram of the abdomen and pelvis. This was done and did not show the fluid to be blood. Unfortunately, we did not have urology on-call here, so I have the images pushed to [facility] and spoke with Dr. Maria, the on-call urologist. 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 She stated that the patient would probably need to have a stent placed in her opinion but that the patient did not necessarily need transfer for this. Furthermore, [facility] had already stated they do not have beds available so the patient would not be able to transfer there even in the event she did need transfer. We did have our own urologist coming back control room agent later this morning and so I did message him to let him know about the patient. At this point in time I am waiting to hear back. The patient on reevaluation was feeling much better and remained hemodynamically stable. She was resting comfortably in bed. At this point in time, the plan will be to sign the patient out to my oncoming colleague Dr. Churchill at change of shift, pending conversation with urologist and final disposition. Discharge Plan Discharge Clinical Impression: Ureteropelvic junction (UPJ) obstruction, left, Pararenal urinoma Prescriptions: No Action levothyroxine [Synthroid] 75 mcg tablet 75 mcg PO QDAY Qty: 100 3RF lithium carbonate 300 mg tablet extended release PO Rx Instructions: Take 2 tablet by mouth every night aspirin 325 mg tablet,delayed release (DR/EC) 650 mg PO QDAY multivitamin [Multiple Vitamins] Tablet 1 tab PO QDAY [id number]-Chapsyx-tur 750 mg-600 mg- 50 mg-125 mg tablets, sequential PO meloxicam 7.5 mg tablet 7.5 mg PO QDAY Qty: 90 3RF Rx Instructions: Take with food. Print Language: Syriac
[2024-11-08] MEDS: KETOROLAC 30 MG/ML VIAL IVP STA (01:22)
[2024-11-08] MEDS: SODIUM CHLORIDE 0.9% 1,000 ML IV STA (01:23)
[2024-11-08 01:35] LABS: BILIRUBIN,URINE NEGATIVE (NEGATIVE); GLUCOSE, URINE (UA) NEGATIVE (NEGATIVE); KETONES,URINE (UA) 15 mg/dL (NEGATIVE); LEUKOCYTE ESTERASE, URINE NEGATIVE (NEGATIVE); NITRITE,URINE NEGATIVE (NEGATIVE); OCCULT BLOOD,URINE TRACE-INTA (NEGATIVE); PH,URINE 6.5 PH (5.0-7.5); PROTEIN,URINE NEGATIVE (NEGATIVE); UROBILINOGEN,URINE 0.2 (NORMAL) E.U./dL (NORMAL)
[2024-11-08 01:36] LABS: CLARITY,URINE CLEAR (CLEAR)
--- NOTE | 2024-11-08 01:43 | CT Report ---
PROCEDURE: CT Abdomen/Pelvis WO INDICATIONS: L flank pain, sudden onset TECHNIQUE: A CT scan of the abdomen and pelvis was performed without the use of intravenous contrast. Images we re recorded and evaluated at appropriate window settings. Reformats: coronal and sagittal. For radiat ion dose reduction, the following was used: automated exposure control, adjustment of mA and/or kV ac cording to patient size. COMPARISON: CT chest 12/06/2023 CT abdomen and pelvis 06/28/2015. FINDINGS: Image quality: Diagnostic. Lower chest: Unremarkable. Liver: No contour-deforming mass. Right lobe is prominent. Gallbladder: No radiopaque stones or wall thickening. Biliary tree: No dilatation seen. Spleen: No splenomegaly. Pancreas: No pancreatic ductal dilation. Adrenals: No adrenal nodule. Kidneys and ureters: Severe left kidney hydronephrosis. Left perinephric fluid. No kidney stones seen . No hydroureter seen. No right hydronephrosis. Stomach, bowel and peritoneum: No gastric or small bowel dilation. No abnormal wall thickening. No pa thologic free fluid. Normal appendix. Lymph nodes: No central or retroperitoneal adenopathy. Vessels: Abdominal aortic aneurysm measuring 3.2 cm. Reproductive organs: Postmenopausal uterus. Pessary in the vagina. Bladder: Bladder wall thickness is normal. No calcified bladder stones. Pelvic lymph nodes: No adenopathy by size criteria. Bones: No aggressive osseous abnormality. Mild scoliosis. Other: No significant ventral or inguinal hernia. IMPRESSION: 1. Severe left kidney hydronephrosis. Left perinephric fluid. Suspect UPJ obstruction. 2. No kidney stones are demonstrated. Reviewed by: Eber Do MD on 11/08/2024 1:42 AM [facility] Approved by: Eber Do MD on 11/08/2024 1:42 AM [facility] Station ID: [id number]
[2024-11-08 02:01] LABS: BASOPHILS % (AUTO) 0.3 %; HCT - HEMATOCRIT 38.8 % (37.0-47.0); HGB - HEMOGLOBIN 12.4 g/dL (12.0-16.0); LYMPHOCYTES # (AUTO) 0.7 10^3/uL (1.5-3.5); LYMPHOCYTES % (AUTO) 5.3 %; MEAN CORPUSCULAR HEMOGLOBIN 32.7 pg (27.0-31.0); MEAN CORPUSCULAR VOLUME 102.4 fL (81.0-99.0); MONOCYTES # (AUTO) 0.4 10^3/uL (0.0-1.0); MONOCYTES % (AUTO) 3.4 %; NEUTROPHILS % (AUTO) 90.7 %; PLT - PLATELET COUNT 288 10^3/uL (130-450); RED BLOOD COUNT 3.79 10^6/uL (4.20-5.40); RED CELL DISTRIBUTION WIDTH 13.3 % (12.0-15.0); WHITE BLOOD COUNT 12.2 x10^3/uL (4.8-10.8)
[2024-11-08] MEDS: ONDANSETRON 4 MG/2 ML VIAL IVP STA (02:05)
[2024-11-08] MEDS: HYDROmorphone 1 MG/ML CARPUJECT IVP STA (02:05)
[2024-11-08 02:23] LABS: ALBUMIN 3.7 g/dL (3.2-5.5); ALBUMIN/GLOBULIN RATIO 1.3 (1.0-2.2); BILIRUBIN,TOTAL 0.4 mg/dL (0.2-1.0); CALCIUM 8.9 mg/dL (8.5-10.3); CREATININE 0.9 mg/dL (0.6-1.3); TOTAL PROTEIN 6.6 g/dL (6.4-8.9)
[2024-11-08] MEDS ORDERED: iohexoL-300 100 ML VIAL ONE (02:28)
[2024-11-08] MEDS: iohexoL-300 100 ML VIAL IVP ONE (02:57)
--- NOTE | 2024-11-08 07:09 | ED Physician Documentation ---
ED Addendum Addendum Addendum: Sign out at 0704. This is a 74yo F who presented with flank pain starting around 0300 today, with CT/CTA showing severe L hydronephrosis without clearly visualized stone (though potential obstruction at UVJ), with perinephric fluid. Labs with leukocytosis, with BUN elevation to 23, Cr similar to prior. UA with trace blood, no clear infection. Urology Dr. Maria was consulted and suspected possible urinoma from ruptured calyx. They are reviewing images and will call us back, anticipating this does not require transfer but patient should be observed with Urology with probable stent placement. Patient has received dilaudid, fluids, toradol, zofran. PLAN: follow up Urology recommendations and our local Urology availability, anticipating transfer or admission pending availability. Note patient had some urinary retention; she had straight cath here overnight. Per chart review, patient has history of bipolar, hypothyroidism, smoking, osteopenia. Our Urologist Dr. Diane is returning to area today and states patient can be admitted here as long as they remain stable; they would anticipate seeing them tomorrow and request they remain NPO. NPO status ordered. At 0826, I spoke with hospitalist Dr. Ace who kindly accepts patient on review of case with me. Admitting in stable condition. Discharge Plan Discharge Patient Disposition: [facility] DC/Xfer Condition: Stable Clinical Impression: Ureteropelvic junction (UPJ) obstruction, left, Pararenal urinoma Prescriptions: No Action levothyroxine [Synthroid] 75 mcg tablet 75 mcg PO QDAY Qty: 100 3RF lithium carbonate 300 mg tablet extended release PO Rx Instructions: Take 2 tablet by mouth every night aspirin 325 mg tablet,delayed release (DR/EC) 650 mg PO QDAY multivitamin [Multiple Vitamins] Tablet 1 tab PO QDAY [id number]-egqsfc-Qeyiimj-tur 750 mg-600 mg- 50 mg-125 mg tablets, sequential PO meloxicam 7.5 mg tablet 7.5 mg PO QDAY Qty: 90 3RF Rx Instructions: Take with food. Print Language: Kinyarwanda
[2024-11-08] MEDS ORDERED: ONDANSETRON ODT 4 MG TABLET TL PRN (10:03)
[2024-11-08] MEDS ORDERED: ONDANSETRON 4 MG/2 ML VIAL IVP PRN ×2 (10:03→15:12)
[2024-11-08] MEDS ORDERED: SODIUM CHLORIDE FLUSH 0.9% 10 ML SYRINGE IVP PRN (10:03)
--- NOTE | 2024-11-08 10:10 | CT Report ---
PROCEDURE: CT Angio Abdomen/Pelvis INDICATIONS: acute L flank pain CONTRAST: 80 cc Omnipaque 350 TECHNIQUE: After the administration of intravenous contrast, 2.5 mm thick sections acquired from the diaphragm t o the symphysis. 10 mm maximum-intensity projection (MIP) reformats were then acquired. For radiati on dose reduction, the following was used: automated exposure control, adjustment of mA and/or kV ac cording to patient size. COMPARISON: CT abdomen pelvis 11/08/2024, 06/28/2015 FINDINGS: Image quality: Excellent. VESSELS:Fusiform Aorta: Prominent athrosclerotic calcifications. Mural thrombus in the infrarenal abdominal aorta. Fu siform dilation of the infrarenal aortia measuring 3.5 cm. Mild right renal artery stenosis. Mesenteric arteries: Mild stenosis at the origin of the inferior mesenteric artery. Right pelvic arteries: Patent Left pelvic arteries: Patent CHEST: Lung bases and heart: Unremarkable. ABDOMEN: Liver: No solid mass. Gallbladder and biliary tree: Unremarkable. Spleen: No splenomegaly. Pancreas: No pancreatic ductal dilation. Adrenals: No adrenal nodule. Kidneys and ureters: Severe hydronephrosis on the left without source of obstruction . Bowel and peritoneum: No bowel distension. No pathologic free fluid. Modearte colonic stool. Lymph nodes: No central or retroperitoneal adenopathy. PELVIS Reproductive organs: Pessary. Bladder: No abnormal wall thickening, accounting for underdistension. Pelvic lymph nodes: No pelvic adenopathy by size criteria. Bones: No aggressive osseous abnormality. Other: No significant ventral or inguinal hernia. IMPRESSION: Severe left hydronephrosis likely secondary to UPJ obstruction. Fusiform aneurysmal dilation of the infra-renal aorta. The above findings are concordant with preliminary report. Reviewed by: Alondra Dennison MD on 11/08/2024 10:08 AM [facility] Approved by: Alondra Dennison MD on 11/08/2024 10:08 AM PST Station ID: [id number]
[2024-11-08] MEDS: HYDROmorphone 0.5 MG/0.5 ML SYRINGE IVP PRN (10:12)
[2024-11-08] MEDS: SODIUM CHLORIDE FLUSH 0.9% 10 ML SYRINGE IVP SCH (10:13)
[2024-11-08] MEDS: SODIUM CHLORIDE 0.9% 1,000 ML IV SCH (10:13)
--- NOTE | 2024-11-08 10:22 | HISTORY & PHYSICAL EXAMINATION ---
Chief Complaint Chief Complaint Chief Complaint: left sided back pain History of Present Illness Admitted From Admitted From:: ED History Obtained From Records Reviewed: past [facility] chart History obtained from: Patient History of Present Illness HPI Comment/Other: Sudden onset of back pain while watching TV yesterday evening. She denies any falls she denies any trauma to her back. She states she was just sitting at rest and had the sudden onset of pain. She has a past medical history of depression and lithium overdose. Primary care chart reviewed. Interestingly enough she was seen about a month ago in the primary care clinic for back pain. This was not described as flank pain, rather upper and lower musculoskeletal back pain. She has not been having any pain or burning with urination she has not been having any fever or chills. She denies any blood in her urine. She does not think she has ever had a kidney stone. Meds/Allgy Home Medications Ambulatory Orders Medication Instructions Recorded Confirmed glucosamine 750 mg-chondr 600 1 ea PO DAILY 10/05/24 11/08/24 mg-Ryann 50 mg-turmeric 125 mg tablets lithium carbonate 300 mg 600 mg PO QPM 10/05/24 11/08/24 tablet,extended release meloxicam 7.5 mg tablet 7.5 mg PO QDAY #90 tabs 10/05/24 11/08/24 multivitamin (Multiple Vitamins 1 tab PO QDAY 10/05/24 11/08/24 tablet) levothyroxine 75 mcg tablet 75 mcg PO QDAY #100 tabs 10/06/24 11/08/24 (Synthroid) hydrocodone 5 mg-acetaminophen 325 1 tab PO Q4HR PRN Moderate Pain 11/08/24 mg tablet (Level 4-6) #20 tabs Allergies Allergies Allergy/AdvReac Type Severity Reaction Status Date / Time lamotrigine (From Lamictal) Allergy Severe Unknown Verified 11/08/24 01:05 Kvsgrdi-MSJ-CzY Reductase Allergy Severe Unknown Verified 11/08/24 01:05 Inhibitor tramadol Allergy Severe Unknown Verified 11/08/24 01:05 adhesive Allergy Intermediate Rash Verified 11/08/24 01:05 naproxen Allergy Unknown Verified 11/08/24 01:05 meloxicam AdvReac Intermediate Itching Verified 11/08/24 01:05 [facility] Social History Social History Smoking Status: Current every day smoker Number of Years Smoked: 60 How many cigarettes a day do you smoke? (20 cigarettes=1 Pk): 6 Do you dip or chew tobacco?: No Do you vape?: No Patient requests smoking cessation consult: Yes Initiate information on smoking cessation: Yes Living arrangement: At home Relationship: Level: Independent Do you feel safe in your home environment?: Yes Suffered physical, verbal, emotional, or financial abuse?: No History of Abuse: No ETOH Use: None Substance Use: cannabis (any form) POLST Patient has POLST: No Review of Systems Status of ROS: 10 or more systems reviewed and unremarkable except as noted in history and below Constitutional Denies: Fever or Chills Eyes Denies: Change in vision Ears, nose, mouth, and throat Reports: Dental decay Cardiovascular Denies: Irregular heart rate or chest pain Respiratory Reports: Cough (occasional morning cough, not every day) Gastrointestinal Reports: Abdominal pain (left flank) Genitourinary Denies: Painful urination, Urinary frequency, Urinary urgency, Urinary incontinence, Blood in urine or Difficulty voiding Musculoskeletal Reports: Back pain Integumentary/Breast Denies: Rash Neurological Denies: General weakness Psychiatric Denies: Depression (depression well controlled ) Hematologic/Lymphatic Reports: Easy bruising (recently stopped asprin due to bruising. ) Prior Level of Functionality: lives alone with her cat in [place] apartments in [place]. she walks to get her groceries and is able to meet her own needs. Exam Constitutional normal general appearance and no apparent distress HENMT normocephalic and dentition normal (poor dentition. ) Eyes PERRL and conjunctivae normal Neck/C-Spine visual inspection normal Lymph no lymphadenopathy noted Chest inspection of chest normal Respiratory breath sounds equal bilaterally, normal respiratory effort and clear to auscultation bilaterally Cardiovascular normal heart rate noted Gastrointestinal abdomen normal to inspection and abdomen soft to palpation there is left CVA tenderness Genitourinary CVA tenderness noted Back/Pelvis spine normal to inspection Extremities normal to inspection Neurology developer prover upholstering II-XII intact, no movement abnormality noted, no focal motor deficit noted, no sensory deficits noted and GCS 15 Psychiatry mental status grossly normal, oriented x3, thought process normal, cooperative and affect normal Skin skin color normal Conclusion/Plan Problem List (1) Pararenal urinoma: Plan: CT of the abdomen pelvis significant for severe left kidney hydronephrosis with left perinephric fluid suspicious for UPJ obstruction. Emergency department consulted with [facility] urology. They suspect rupture of the renal calyx. This resulted in urinoma in the setting of chronic UPJ obstruction stenosis. Recommendation was for stent placement. Discussion of transfer for treatment was entertained. However we do have urology coverage at this facility later today and Dr. Diane has agreed to care for the patient. Patient was discussed with Dr. Diane who recommends n.p.o. and control of her pain until such time as intervention can be undertaken. I have ordered IV fluids. I have ordered a Wellington catheter for accurate ins and outs. Patient will remain NPO. She will be given IV pain medication to control her severe left flank pain. We will monitor for acute kidney injury in the setting of severe hydronephrosis. I have ordered BMP for the a.m. (2) Ureteropelvic junction (UPJ) obstruction, left: Plan: Severe left hydronephrosis is noted on imaging. Patient has had CT of the abdomen pelvis without contrast as well as abdomen pelvis CTA. Source of UPJ obstruction is not noted on either of these studies. (3) Hypothyroidism: Plan: Currently takes Synthroid 75 mg daily. Her last TSH 6.92 on 09/27/2024. This was a due diagnosis for her at her primary care clinic visit on 10/05/2024. Recommendation was to recheck TSH in 6 weeks. I will add this onto her morning labs. (4) Depressive disorder: Plan: History of suicidal ideation with suicide attempt was 10 years ago. She is consistently taking her lithium at this time. Last lithium level on 09/27/2024 0.77, does not indicate toxicity. (5) Tobacco use disorder: Plan: Patient states she smokes a third of a pack per day times many many years. It looks like she is getting annual screening for lung cancer most recently done in November of this year. Would recommend continuing this. Patient has no interest in smoking cessation at this time. She request nicotine replacement therapy while admitted. I have ordered a 14 mg nicotine patch. Lab Results 11/08/24 01:56 11/08/24 01:56 Core Measures Anticipated LOS I expect patient to be DC'd or transferred within 96 hours.: Yes Issues Hospital Issues and Management Plan: Monitoring and surveillance for acute kidney injury Consultation and intervention by urology Holding chemical DVT prophylaxis until postsurgical intervention. Mechanical DVT prophylaxis is ordered. I have spent 80 minutes in the care of this patient today. This includes time [id number], review and ordering of diagnostic imaging and laboratory studies and consultation with other providers.. Monitoring the patient's signs symptoms, evaluation of medication effectiveness and patient's response to treatment. DVT/VTE - Prophylaxis VTE/DVT Device ordered at admit?: Yes VTE/DVT Prophylaxis med ordered at admit?: No Not Ordered - Medical Reason: Contraindicated
[2024-11-08] MEDS: NICOTINE 14 MG PATCH TOP SCH (11:11)
[2024-11-08] MEDS ORDERED: iohexoL-240 10 ML VIAL IVP ONE (14:17)
[2024-11-08] MEDS ORDERED: LIDOCAINE 2% URO-JET 5 ML SYRINGE UR ONE (14:17)
[2024-11-08] MEDS ORDERED: NALOXONE 0.4 MG/ML VIAL IVP PRN (15:12)
[2024-11-08] MEDS ORDERED: ATROPINE ABBOJECT 1 MG/10 ML SYRINGE IVP PRN (15:12)
[2024-11-08] MEDS ORDERED: fentaNYL 100 MCG/2 ML VIAL IVP PRN (15:12)
[2024-11-08] MEDS ORDERED: ePHEDrine 50 MG/ML VIAL IVP PRN (15:12)
[2024-11-08] MEDS ORDERED: METOCLOPRAMIDE 10 MG/2 ML VIAL IVP PRN (15:12)
[2024-11-08] MEDS ORDERED: HYDROmorphone 0.5 MG/0.5 ML SYRINGE IVP PRN (15:12)
--- NOTE | 2024-11-08 15:12 | ANESTHESIA PROCEDURE NOTE ---
Pre-Anesthesia VS, & Labs Diagnosis Surgical Diagnosis:: left hydronephrosis Procedure Procedure: cysto/stent Vitals Vital Signs: Temp Pulse Resp BP Pulse Ox 36.4 C L 76 18 132/77 H 97 11/08/24 12:22 11/08/24 12:22 11/08/24 12:22 11/08/24 12:22 11/08/24 12:22 Height (in): 5 ft 3 in Weight (kg): 52 kg Body Mass Index: 20.2 BMI Classification: Normal NPO NPO: >8 hours Is Patient ?: No Lab Results Current Lab Results: Laboratory Tests 11/08/24 01:56: WBC 12.2 H, RBC 3.79 L, Hgb 12.4, Hct 38.8, MCV 102.4 H, MCH 32.7 H, MCHC 32.0, RDW 13.3, Plt Count 288, MPV 11.0 H, Neut # (Auto) 11.0 H, L ymph # (Auto) 0.7 L, [place] # (Auto) 0.4, Eos # (Auto) 0.0, Baso # (Auto) 0.0, Absolute Nucleated RBC 0.00, Nucleated RBC % 0.0, Sodium 138, Potassium 4.0, Chloride 107, Carbon Dioxide 23, Anion Gap 8.0, BUN 23 H, Creatinine 0.9, E stimated GFR (MDRD) 61 L, Glucose 150 H, Calcium 8.9, Total Bilirubin 0.4, AST 20, ALT 15, Alkaline Phosphatase 71, Total Protein 6.6, Albumin 3.7, Globulin 2.9, Albumin/Globulin Ratio 1.3, Lipase 14 Lab results reviewed: Yes 11/08/24 01:56 11/08/24 01:56 Meds/Allgy Home Medications Ambulatory Orders Medication Instructions Recorded Confirmed glucosamine 750 mg-chondr 600 ea PO 10/05/24 10/05/24 mg-Ryann 50 mg-turmeric 125 mg tablets lithium carbonate 300 mg 600 mg PO QPM 10/05/24 11/08/24 tablet,extended release meloxicam 7.5 mg tablet 7.5 mg PO QDAY #90 tabs 10/05/24 11/08/24 multivitamin (Multiple Vitamins 1 tab PO QDAY 10/05/24 11/08/24 tablet) levothyroxine 75 mcg tablet 75 mcg PO QDAY #100 tabs 10/06/24 11/08/24 (Synthroid) Allergies Allergies Allergy/AdvReac Type Severity Reaction Status Date / Time lamotrigine (From Lamictal) Allergy Severe Unknown Verified 11/08/24 01:05 Jhzhukx-GNG-YoO Reductase Allergy Severe Unknown Verified 11/08/24 01:05 Inhibitor tramadol Allergy Severe Unknown Verified 11/08/24 01:05 adhesive Allergy Intermediate Rash Verified 11/08/24 01:05 naproxen Allergy Unknown Verified 11/08/24 01:05 meloxicam AdvReac Intermediate Itching Verified 11/08/24 01:05 [facility] Social History Social History Smoking Status: Current every day smoker Number of Years Smoked: 60 How many cigarettes a day do you smoke? (20 cigarettes=1 Pk): 6 Do you dip or chew tobacco?: No Do you vape?: No Patient requests smoking cessation consult: Yes Initiate information on smoking cessation: Yes Living arrangement: At home Relationship: Level: Independent Do you feel safe in your home environment?: Yes Suffered physical, verbal, emotional, or financial abuse?: No History of Abuse: No ETOH Use: None Substance Use: cannabis (any form) POLST Patient has POLST: No Anesthesia Exam (Expanded) Exam General: Alert and No acute distress Dental: WNL (two front central incisor caps; lower rear right loose molar) Mouth Openin Fingerbreadth Neck Mobility: Normal Mallampati classification: II Thyromental Distance: 4-6 cm Respiratory: Lungs clear Cardiovascular: Regular rate Plan Problem List (1) Pararenal urinoma: Plan: CT of the abdomen pelvis significant for severe left kidney hydronephrosis with left perinephric fluid suspicious for UPJ obstruction. Emergency department consulted with [facility] urology. They suspect rupture of the renal calyx. This resulted in urinoma in the setting of chronic UPJ obstruction stenosis. Recommendation was for stent placement. Discussion of transfer for treatment was entertained. However we do have urology coverage at this facility later today and Dr. Diane has agreed to care for the patient. Patient was discussed with Dr. Diane who recommends n.p.o. and control of her pain until such time as intervention can be undertaken. I have ordered IV fluids. I have ordered a Wellington catheter for accurate ins and outs. Patient will remain NPO. She will be given IV pain medication to control her severe left flank pain. We will monitor for acute kidney injury in the setting of severe hydronephrosis. I have ordered BMP for the a.m. (2) Ureteropelvic junction (UPJ) obstruction, left: Plan: Severe left hydronephrosis is noted on imaging. Patient has had CT of the abdomen pelvis without contrast as well as abdomen pelvis CTA. Source of UPJ obstruction is not noted on either of these studies. (3) Hypothyroidism: Plan: Currently takes Synthroid 75 mg daily. Her last TSH 6.92 on 09/27/2024. This was a due diagnosis for her at her primary care clinic visit on 10/05/2024. Recommendation was to recheck TSH in 6 weeks. I will add this onto her morning labs. (4) Depressive disorder: Plan: History of suicidal ideation with suicide attempt was 10 years ago. She is consistently taking her lithium at this time. Last lithium level on 09/27/2024 0.77, does not indicate toxicity. (5) Tobacco use disorder: Plan: Patient states she smokes a third of a pack per day times many many years. It looks like she is getting annual screening for lung cancer most recently done in November of this year. Would recommend continuing this. Patient has no interest in smoking cessation at this time. She request nicotine replacement therapy while admitted. I have ordered a 14 mg nicotine patch. (6) Bipolar disorder: Plan Anesthesia Type: General Consent for Procedure(s) Verified and Reviewed: Yes Code Status: Attempt Resuscitation ASA Classification ASA classification: 2-Mild systemic disease Is this case an emergency?: No
[2024-11-08] MEDS ORDERED: LIDOCAINE-PF 2% 10 ML AMP SUBQ ONE (15:17)
[2024-11-08] MEDS ORDERED: PROPOFOL 200 MG/20 ML VIAL IVP ONE (15:17)
--- NOTE | 2024-11-08 15:18 | CONSULTATION NOTE ---
Chief Complaint Chief Complaint Chief Complaint: left flank pain History of Present Illness Admitted From Admitted From:: ER History Obtained From Records Reviewed: ER, patient History obtained from: patient, EMR Exam Limitations: none History of Present Illness HPI Comment/Other: Beatriz is a 74-year-old woman with history of suicidal ideation and lithium overdose and bipolar disease who presented to the ER today with acute left flank pain. She states that the pain started late last night. She think she may have had a kidney stone years ago but is not sure. She had some nausea and vomiting but denies fever or chills. CT scan showed an inflamed left kidney and likely UPJ obstruction on the left side. She was admitted to the hospital in preparation for my arrival back into [facility]. I was away until now [facility] Social History Social History Smoking Status: Current every day smoker Number of Years Smoked: 60 How many cigarettes a day do you smoke? (20 cigarettes=1 Pk): 6 Do you dip or chew tobacco?: No Do you vape?: No Patient requests smoking cessation consult: Yes Initiate information on smoking cessation: Yes Living arrangement: At home Relationship: Level: Independent Do you feel safe in your home environment?: Yes Suffered physical, verbal, emotional, or financial abuse?: No History of Abuse: No ETOH Use: None Substance Use: cannabis (any form) POLST Patient has POLST: No Meds/Allgy Home Medications Ambulatory Orders Medication Instructions Recorded Confirmed glucosamine 750 mg-chondr 600 ea PO 10/05/24 10/05/24 mg-Ryann 50 mg-turmeric 125 mg tablets lithium carbonate 300 mg 600 mg PO QPM 10/05/24 11/08/24 tablet,extended release meloxicam 7.5 mg tablet 7.5 mg PO QDAY #90 tabs 10/05/24 11/08/24 multivitamin (Multiple Vitamins 1 tab PO QDAY 10/05/24 11/08/24 tablet) levothyroxine 75 mcg tablet 75 mcg PO QDAY #100 tabs 10/06/24 11/08/24 (Synthroid) Allergies Allergies Allergy/AdvReac Type Severity Reaction Status Date / Time lamotrigine (From Lamictal) Allergy Severe Unknown Verified 11/08/24 01:05 Zovjidu-DPO-XgT Reductase Allergy Severe Unknown Verified 11/08/24 01:05 Inhibitor tramadol Allergy Severe Unknown Verified 11/08/24 01:05 adhesive Allergy Intermediate Rash Verified 11/08/24 01:05 naproxen Allergy Unknown Verified 11/08/24 01:05 meloxicam AdvReac Intermediate Itching Verified 11/08/24 01:05 Results Lab Results 11/08/24 01:56 11/08/24 01:56 Other Lab Results: Lab Results x24hrs 11/08/24 11/08/24 Range/Units 01:56 01:08 WBC 12.2 H (4.8-10.8) x10^3/uL RBC 3.79 L (4.20-5.40) 10^6/uL Hgb 12.4 (12.0-16.0) g/dL Hct 38.8 (37.0-47.0) % MCV 102.4 H (81.0-99.0) fL MCH 32.7 H (27.0-31.0) pg MCHC 32.0 (32.0-36.0) g/dL RDW 13.3 (12.0-15.0) % Plt Count 288 (130-450) 10^3/uL MPV 11.0 H (7.9-10.8) fL Neut # (Auto) 11.0 H (1.5-6.6) 10^3/uL Lymph # (Auto) 0.7 L (1.5-3.5) 10^3/uL [place] # (Auto) 0.4 (0.0-1.0) 10^3/uL Eos # (Auto) 0.0 (0.0-0.7) 10^3/uL Baso # (Auto) 0.0 (0.0-0.1) 10^3/uL Absolute Nucleated RBC 0.00 x10^3/uL Nucleated RBC % 0.0 /100WBC Sodium 138 (135-145) mmol/L Potassium 4.0 (3.5-4.5) mmol/L Chloride 107 (101-111) mmol/L Carbon Dioxide 23 (21-32) mmol/L Anion Gap 8.0 (6-13) BUN 23 H (6-20) mg/dL Creatinine 0.9 (0.6-1.3) mg/dL Estimated GFR (MDRD) 61 L (>89) Glucose 150 H (74-104) mg/dL Calcium 8.9 (8.5-10.3) mg/dL Total Bilirubin 0.4 (0.2-1.0) mg/dL AST 20 (10-42) IU/L ALT 15 (10-60) IU/L Alkaline Phosphatase 71 (42-121) IU/L Total Protein 6.6 (6.4-8.9) g/dL Albumin 3.7 (3.2-5.5) g/dL Globulin 2.9 (2.1-4.2) g/dL Albumin/Globulin Ratio 1.3 (1.0-2.2) Lipase 14 (11-82) U/L Urine Color YELLOW Urine Clarity CLEAR (CLEAR) Urine pH 6.5 (5.0-7.5) PH Ur Specific [place] 1.020 (1.002-1.030) Urine Protein NEGATIVE (NEGATIVE) mg/dL Urine Glucose (UA) NEGATIVE (NEGATIVE) mg/dL Urine Ketones 15 H (NEGATIVE) mg/dL Urine Occult Blood [place] (NEGATIVE) Urine Nitrite NEGATIVE (NEGATIVE) Urine Bilirubin NEGATIVE (NEGATIVE) Urine Urobilinogen 0.2 (NORMAL) (NORMAL) E.U./dL Ur Leukocyte Esterase NEGATIVE (NEGATIVE) Ur Microscopic Review NOT INDICATED Urine Culture Comments NOT INDICATED Conclusion and Plan Diagnosis Diagnosis: Left UPJ obstruction, left flank pain Plan Plan: 74-year-old woman with no significant urological history with acute left-sided flank pain consistent with UPJ obstruction. We discussed her imaging findings. I reviewed and interpreted this directly myself. I do believe she has a left UPJ obstruction. I recommend a cystoscopy, left ureteral stent placement to improve her symptomatic pain. This will not likely treat her condition but will at least give us some time to evaluate further. We discussed the risks and benefits alternatives of this procedure. Specific risk of infection, bleeding, injury to adjacent structures, need for additional procedures, failure of therapy, stent colic, anesthesia risks were discussed. After discussion patient states understanding and consents to the above plan. She has been marked and consented and will be taken to the OR soon Exam Exam NAD RRR CTA b/l Left CVAT
[2024-11-08] MEDS ORDERED: ONDANSETRON 4 MG/2 ML VIAL ONE (15:32)
[2024-11-08] MEDS ORDERED: ePHEDrine 50 MG/ML VIAL IVP ONE (15:45)
[2024-11-08] MEDS ORDERED: ceFAZolin 1 GM VIAL ONE (15:55)
--- NOTE | 2024-11-08 16:14 | OPERATIVE REPORT ---
Operative Report General Admit Date: 11/08/24 Procedure Data: Operation Date: 11/08/24 15:30 Proposed Procedures p Cystoscopy With Ureteral Stent Placement(Left) - Silvio Diane MD Actual Procedures p Cystoscopy With Ureteral Stent Placement(Left) - Silvio Diane MD Pre-Op Diagnosis: LEFT URETEROPIC JUNCTION OBSTRUCTION Anesthesia Type General Case Staff Anesthesia Provider: Gopal López Case Times Procedure Start: 11/08/24 15:55 Time out: 11/08/24 15:54 Implants STENT URETERAL [id number] Pre-Op Diagnosis: left UPJ obstruction Post Op Diagnosis: left UPJ obstruction Procedure Note Indications: Left hydronephrosis and pain likely UPJ obstruction Findings: Severe hydronephrosis with contrast from CT scan seen Difficult to place stent but stent was eventually able to be placed Other Other Information/Narrative: After informed sent was obtained the patient was brought to the OR and laid in the supine position. Patient was anesthetized per anesthesia protocols, her Wellington catheter from the floor was removed, and prepped draped in usual sterile fashion in the dorsolithotomy position. A formal timeout was performed and the patient, procedure and laterality was reconfirmed. A 22 Lao cystoscope was advanced easily per urinary bladder. The bladder was inspected and full and there were no masses, lesions or other concerns. Ureteral orifices were orthotopic in nature [employer] imaging showed contrast filling her left kidney and it was massively dilated with severe hydronephrosis. There was no contrast in the ureter. This appeared very consistent with a UPJ obstruction. A sensor wire was placed through her left ureteral orifice and up into the proximal ureter but was unable to gain access convincingly into the kidney. And so using a 5 Lao ureteral catheter and angled Glidewire was advanced up into the kidney. The 5 Lao ureteral catheter was passed over this. The Glidewire was removed and a hydronephrotic drip was seen. We then placed a sensor wire up into the kidney and were able to gently manipulate the ureter and pelvis to become more straight. We then placed a 6 Lao 24 cm stent with good curling noted in the kidney and good curling noted in the bladder. There was an excellent efflux of fluid from the stent. The bladder was emptied and Uro-Jet was placed. This concluded the procedure the patient tolerated the procedure well. She was brought to the PACU without further incident. She will likely go home tonight and follow-up with me in a few weeks to discuss further evaluation of her likely left UPJ obstruction
[2024-11-08] MEDS ORDERED: HYDROcod/ACETAM 5/325 MG TABLET PO PRN (16:18)
--- NOTE | 2024-11-08 16:35 | PHARMACY PROGRESS NOTE ---
Best Possible Medication History Admit Date and Time: 11/08/24 191954 Home Medications Medication Instructions Recorded Confirmed Type glucosamine 750 mg-chondr 600 1 ea PO DAILY 10/05/24 11/08/24 History mg-Ryann 50 mg-turmeric 125 mg tablets lithium carbonate 300 mg 600 mg PO QPM 10/05/24 11/08/24 History tablet,extended release meloxicam 7.5 mg tablet 7.5 mg PO QDAY #90 tabs 10/05/24 11/08/24 Rx multivitamin (Multiple Vitamins 1 tab PO QDAY 10/05/24 11/08/24 History tablet) levothyroxine 75 mcg tablet 75 mcg PO QDAY #100 tabs 10/06/24 11/08/24 Rx (Synthroid) Processed by: Pharmacy Medications reviewed in ED?: Yes Medication History completed: Yes Patient Interview: Pt unable to participate Secondary Source(s): Pharmacy records and Insurance records [facility] Statement: As the person ultimately responsible for medication therapy, providers are able to order a medication from an existing home medication list in [facility] via the "Reconcile Routine" prior to Confirmation of that medication by arch support technician. Such practice is discouraged except when the physician, in their clinical judgment, deems that a medical need exists for a medication without regard to previous use.
[2024-11-08 17:29] VITALS: BP 104/69; TEMP 98.1; O2SAT 95
[2024-11-08] MEDS: LACTATED RINGERS 1,000 ML IV SCH (17:38)
[2024-11-08] MEDS: ceFAZolin 1 GM in SODIUM CHLORIDE 0.9% MINIBAG 100 ML IV ONE (17:39)
--- NOTE | 2024-11-08 17:43 | Discharge Summary ---
"Discharge Summary Admit Date: 11/08/24 Discharge Date: 11/08/24 Discharging Provider: Megan Davis PA-C Primary Care Provider: DENZEL Murcia Code Status: Attempt Resuscitation DIAGNOSES Discharge Diagnoses with Status of Each Condition: Left UPJ obstruction, stented. Follow-up with urology in the outpatient setting Hypothyroidism, present on admission. Depression, present on admission. Tobacco use disorder, present on admission. HPI History of Present Illness: Sudden onset of back pain while watching TV yesterday evening. She denies any falls she denies any trauma to her back. She states she was just sitting at rest and had the sudden onset of pain. She has a past medical history of depression and lithium overdose. Primary care chart reviewed. Interestingly enough she was seen about a month ago in the primary care clinic for back pain. This was not described as flank pain, rather upper and lower musculoskeletal back pain. She has not been having any pain or burning with urination she has not been having any fever or chills. She denies any blood in her urine. She does not think she has ever had a kidney stone. CONSULTS | PROCEDURES Consultations: Urology Procedures: Cystoscopy with left ureteral stent placement HOSPITAL COURSE Hospital Course: She was admitted after sudden onset of severe left CVA pain and imaging positive for left UPJ obstruction with severe left hydronephrosis. She remained n.p.o. was placed on IV fluids and was given a Wellington catheter. Her pain was treated. She was taken to the operating room by urology for the above listed procedure. She did well and was ready to discharge home on the evening of admission. ALLERGIES Allergies Allergy/AdvReac Type Severity Reaction Status Date / Time lamotrigine (From Lamictal) Allergy Severe Unknown Verified 11/08/24 01:05 Ratagiz-CPE-RgZ Reductase Allergy Severe Unknown Verified 11/08/24 01:05 Inhibitor tramadol Allergy Severe Unknown Verified 11/08/24 01:05 adhesive Allergy Intermediate Rash Verified 11/08/24 01:05 naproxen Allergy Unknown Verified 11/08/24 01:05 meloxicam AdvReac Intermediate Itching Verified 11/08/24 01:05 MEDICATIONS Ambulatory Orders Medication Instructions Recorded Confirmed glucosamine 750 mg-chondr 600 1 ea PO DAILY 10/05/24 11/08/24 mg-[place] 50 mg-turmeric 125 mg tablets lithium carbonate 300 mg 600 mg PO QPM 10/05/24 11/08/24 tablet,extended release meloxicam 7.5 mg tablet 7.5 mg PO QDAY #90 tabs 10/05/24 11/08/24 multivitamin (Multiple Vitamins 1 tab PO QDAY 10/05/24 11/08/24 tablet) levothyroxine 75 mcg tablet 75 mcg PO QDAY #100 tabs 10/06/24 11/08/24 (Synthroid) hydrocodone 5 mg-acetaminophen 325 1 tab PO Q4HR PRN Moderate Pain 11/08/24 mg tablet (Level 4-6) #20 tabs PHYSICAL EXAM AT DISCHARGE General Appearance: positive No acute distress and Alert Eyes Bilateral: positive Normal inspection ENT: positive ENT inspection nml Neck: positive Nml inspection Respiratory: positive No respiratory distress and Breath sounds nml Cardiovascular: positive Regular rate & rhythm Abdomen: positive No distention Back: positive CVA tenderness (L) Skin: positive Color nml Extremities: positive Non-tender and No pedal edema Neurologic/Psychiatric: positive Oriented x3 LABS 11/08/24 01:56 11/08/24 01:56 FOLLOW UP Follow Up: Dr. Silvio Diane, as directed DENZEL Del Real, 7 to 10 days. TIME SPENT Time Spent in Discharge (Minutes): 25 Discharge Plan Discharge Patient Disposition: Home, Self Care Condition: Stable Prescriptions: New hydrocodone-acetaminophen 5-325 mg Tablet 1 tab PO Q4HR PRN (Reason: Moderate Pain (Level 4-6)) Qty: 20 0RF Continued levothyroxine [Synthroid] 75 mcg tablet 75 mcg PO QDAY Qty: 100 3RF lithium carbonate 300 mg tablet extended release 600 mg PO QPM Rx Instructions: Take 2 tablet by mouth every night multivitamin [Multiple Vitamins] Tablet 1 tab PO QDAY xahwukwjeuf-htzwni-Qvcvkfp-tur 750 mg-600 mg- 50 mg-125 mg tablets, sequential 1 ea PO DAILY meloxicam 7.5 mg tablet 7.5 mg PO QDAY Qty: 90 3RF Rx Instructions: Take with food. Activity Restrictions/Additional Instructions: DIET - You may resume your normal diet if there is no nausea or vomiting. You may want to avoid spicy, greasy, or heavy foods today to minimize gas. - If nausea or vomiting occurs, don't eat or drink anything for one hour. Then start drinking small amounts of clear liquids. Later, add crackers, gradually building up to your usual diet. ACTIVITY INSTRUCTIONS * You may resume your normal activity DISCHARGE INSTRUCTIONS * You have a ureteral stent in place. This must be exchanged or removed within 3 months. Please follow-up with Dr. Diane as planned to discuss the stent and further evaluation of your likely ureteropelvic junction obstruction * Call for fever greater than 100.4 Fahrenheit. * It is normal to have increased frequency and urgency of urination with the stent placed. It is normal to have occasional pain in the flank on the left side with the stent in place. It is normal to have blood in your urine while the stent is in place. MEDICATIONS * Resume your normal medications. Take Tylenol as needed for pain but no more than 2000 mg in 1 day. Take narcotic pain medications for rescue pain. Take stool softeners on days when you take pain medications ANESTHESIA PRECAUTIONS Anesthesia and medications given during surgery remain in your body up to 24 hours. This may slow reaction time and/or decrease coordination. FOR THE NEXT 24 HOURS: - Have a responsible person with you - Avoid any activity that requires you to be alert and coordinated - DO NOT DRIVE a motor vehicle for 24 hours or as long as you are taking opoid pain medication - Do not drink alcoholic beverages - Do not smoke unattended Patient Date Escort Date RN Date Diet: Regular Health Concerns: You came into the hospital with a sudden onset of pain in your side. It turns out that this was due to a problem with your left kidney. There was obstruction and blockage of flow from the kidney of urine. Dr. Diane took you to the operating room and placed a stent in the ureter to open up the obstruction. His office will be calling you and arranging follow-up here in [place]. After any hospital stay it is important to follow-up with your primary care provider. Please call Vania Rabago's office and arrange follow-up. Prior to primary care follow-up, you should probably have your TSH checked. This is due to be done. This has to do with the new thyroid medication you are on. Print Language: Frisian Patient Instructions: Surgery Anesthesia After, Stents Ureteral Follow-up Care: Silvio Diane MD [Provider Admit Priv/Credential] - (you will be contacted for followup with Dr Diane in the next 2-6 weeks)"
--- NOTE | 2024-11-08 17:52 | XRAY Report ---
PROCEDURE: [place] OR C-Arm Procedure INDICATIONS: STENT PLACEMENT FLUORO TIME: 0.5 MIN TECHNIQUE: 4 intraoperative fluoroscopic images of left upper abdomen were obtained. COMPARISON: 11/08/2024 CT of abdomen and pelvis. FINDINGS: Intraoperative fluoroscopic images shows markedly distended left renal collecting system and placemen t of a left-sided ureteral stent. Total fluoroscopy time is 0.5 minute. IMPRESSION: Fluoroscopy guidance was provided intraoperatively for left-sided ureteral stent placement. Moderate to severe left-sided hydronephrosis. Reviewed by: Carlos Eduardo Coronado MD on 11/08/2024 5:51 PM PST Approved by: Carlos Eduardo Coronado MD on 11/08/2024 5:51 PM PST Station ID: [id number]
--- NOTE | 2024-11-08 19:01 | ANESTHESIA POST OP EVALUATION ---
Anesthesia Post Eval Post Anesthesia Eval Vitals: Last Vital Signs Temp 36.7 C 11/08/24 17:28 Pulse 89 11/08/24 17:28 Resp 18 11/08/24 17:28 BP 104/69 11/08/24 17:28 Pulse Ox 95 11/08/24 17:28 CV Function Including HR & BP: Stable Pain Control: Satisfactory Nausea & Vomiting: Negative Mental Status: Baseline Respiratory Status: Airway Patent Hydration Status: Satisfactory Anesthesia Complications: None
== END 2024-11-08 18:07 | disposition home or self-care (01) ==
LOC: MS2 00:59 → ED 00:59 → MS2 10:01
PROVIDERS: ADMIT Specialist; ATTEND Specialist
DX: E03.9 Hypothyroidism, unspecified; F17.210 Nicotine dependence, cigarettes, uncomplicated; F32.A Depression, unspecified; N13.1 Hydronephrosis with ureteral stricture, not elsewhere classified; I71.40 Abdominal aortic aneurysm, without rupture, unspecified; N36.8 Other specified disorders of urethra